=== PATIENT | male | born 1975 | race Caucasian/White ===

== ENCOUNTER 2019-02-20 06:51 | Emergency (ER) | payer OTHER ==
[2019-02-20] MEDS ORDERED: Morphine 4 MG/ML VIAL ONE (07:36)
[2019-02-20] MEDS ORDERED: Ondansetron PF 4 MG/2 ML Vial ONE (07:36)
[2019-02-20 08:01] LABS: ALT (SGPT) 26 U/L (8-55); AST (SGOT) 21 U/L (5-34); Albumin 3.5 g/dL (3.5-5.0); Alkaline Phosphatase 106 U/L (40-110); Anion Gap 15 mmol/L (10-20); BUN (Urea Nitrogen) 10 mg/dL (8.9-20.6); Bilirubin, Total 0.5 mg/dL (0.2-1.2); Calc. Creatinine Clearance 0 mL/min (70-130); Calcium 8.9 mg/dL (7.8-10.44); Carbon Dioxide 26 mmol/L (22-29); Chloride 95 mmol/L (98-107); Estimated GFR-MDRD Greater than 90; Globulin 3.2 g/dL (2.4-3.5); Glucose 272 mg/dL (70-105); Potassium 4.2 mmol/L (3.5-5.1); Protein, Total 6.7 g/dL (6.0-8.3); Sodium 132 mmol/L (136-145)
[2019-02-20 08:25] LABS: Hemoglobin 12.1 g/dL (14.0-18.0); Mean Corpuscular HGB CONC 34.5 g/dL (32.0-36.0); Mean Corpuscular Hemoglobin 29.7 pg (27.0-31.0); Mean Corpuscular Volume 85.9 fL (78.0-98.0); Mean Platelet Volume 7.5 fL (7.4-10.4); Platelet Count 217 thou/uL (130-400); RBC Distribution Width 10.9 % (11.5-14.5); Red Blood Cell (RBC) Count 4.09 mill/uL (4.70-6.10); White Blood Cell (WBC) Count 13.9 thou/uL (4.8-10.8)
[2019-02-20 08:29] LABS: Band 1 % (5-11); Lymphocytes 7 % (21-51); MDiff Complete? YES; Monocytes 1 % (0-10); Neutrophil 91 % (42-75); RBC Morphology Normal
[2019-02-20 09:55] LABS: Bacteria/HPF None Seen HPF (None Seen); Bilirubin Negative (Negative); Blood, Urine 1+ (Negative); Clarity Clear (Clear); Glucose, Urine (Dipstick) Greater than 1000 mg/dL (Negative); Leukocyte Negative Leu/uL (Negative); Nitrite Negative (Negative); Protein, Urine (Dipstick) 50 mg/dL (Neg-Trace); Squamous Epithelial None Seen HPF (0-3); WBC/HPF 0-3 HPF (0-3)
== END 2019-02-20 09:41 | disposition home or self-care (01) ==
LOC: ERS 06:51
DX: R11.2 Nausea with vomiting, unspecified (principal); R19.7 Diarrhea, unspecified; E10.9 Type 1 diabetes mellitus without complications; F17.220 Nicotine dependence, chewing tobacco, uncomplicated
CPT/HCPCS: 36416; 80053; 81003; 81015; 85025; 96361; 96374; 96375; J2270; J2405

== ENCOUNTER 2019-02-23 10:20 | Inpatient (IN) | payer OTHER ==
[2019-02-23 10:50] LABS: White Blood Cell (WBC) Count 13.5 thou/uL (4.8-10.8)
[2019-02-23] MEDS ORDERED: Ketorolac Tromethamine 30 MG/ML VIAL ONE (10:58)
[2019-02-23] MEDS ORDERED: Ondansetron PF 4 MG/2 ML Vial ONE ×2 (10:58→12:49)
[2019-02-23 11:07] LABS: Base Excess-Venous -1.4 mmol/L (-2.0 to 3.0); Bicarbonate (HCO3v) 22.4 mmol/L (22.0-28.0); CO2 Tension (PvCO2) 33.5 mmHg (40.0-50.0); Calcium, Ionized 1.09 mmol/L (See Comments:); Chloride 98 mmol/L (98-107); Hemoglobin - Calc 10.6 g/dL (14.0-18.0); Potassium 4.2 mmol/L (3.5-5.1); Sodium 131 mmol/L (138-145); T. Carbon Dioxide 23.4 mmol/L (22.0-28.0); vO2 Saturation-calc 81.6 % (60.0-85.0)
[2019-02-23 11:18] LABS: Hemoglobin 12.1 g/dL (14.0-18.0); Mean Corpuscular HGB CONC 32.6 g/dL (32.0-36.0); Mean Corpuscular Hemoglobin 28.1 pg (27.0-31.0); Mean Corpuscular Volume 86.2 fL (78.0-98.0); Mean Platelet Volume 7.1 fL (7.4-10.4); Platelet Count 374 thou/uL (130-400); RBC Distribution Width 10.9 % (11.5-14.5); Red Blood Cell (RBC) Count 4.31 mill/uL (4.70-6.10)
[2019-02-23 11:19] LABS: Band 1 % (5-11); Lymphocytes 3 % (21-51); MDiff Complete? YES; Monocytes 1 % (0-10); Neutrophil 95 % (42-75); Platelet Morphology Comment Appears Adequate; Polychromasia SLIGHT = 2-3 cells (100X) (0-2/hpf)
[2019-02-23 11:20] LABS: ALT (SGPT) 25 U/L (8-55); AST (SGOT) 23 U/L (5-34); Albumin 3.7 g/dL (3.5-5.0); Alkaline Phosphatase 125 U/L (40-110); Anion Gap 23 mmol/L (10-20); BUN (Urea Nitrogen) 12 mg/dL (8.9-20.6); Bilirubin, Total 0.6 mg/dL (0.2-1.2); Calc. Creatinine Clearance 0 mL/min (70-130); Calcium 9.3 mg/dL (7.8-10.44); Carbon Dioxide 22 mmol/L (22-29); Chloride 93 mmol/L (98-107); Estimated GFR-MDRD Greater than 90; Globulin 3.9 g/dL (2.4-3.5); Glucose 335 mg/dL (70-105); Lipase 4 U/L (8-78); Potassium 4.5 mmol/L (3.5-5.1); Protein, Total 7.6 g/dL (6.0-8.3); Sodium 133 mmol/L (136-145)
--- NOTE | 2019-02-23 11:22 | RAD ---
PORTABLE CHEST 1 VIEW: DATE: 02/23/2019. TIME: 10:23 AM. HISTORY: Cough. FINDINGS/IMPRESSION: Comparison is made with the exam of 04/15/2014. The heart size is normal. There is mild infiltrate in the left suprahilar region which may represent an early/developing pneumonia. A smaller process is seen in the right perihilar region. No pneumot horaces or pleural effusions are seen. POS: TPC
[2019-02-23] MEDS ORDERED: Aspirin Chewable 81 MG TAB ONE (12:36)
[2019-02-23 13:13] LABS: INR-International Normal Ratio 1.2; PTT 34.6 SEC (22.9-36.1); Prothrombin Time 15.3 SEC (12.0-14.7)
[2019-02-23] MEDS ORDERED: cefTRIAXone\\ROCEPHIN 2 GM VIAL ONE (13:20)
[2019-02-23] MEDS ORDERED: Sodium Chloride 0.9% 100 ML ONE (13:20)
--- NOTE | 2019-02-23 13:50 | RAD ---
Exam: Chest one view HISTORY: Myocardial infarction Comparison: None FINDINGS: Cardiac silhouette: Normal Aorta: Unremarkable Pulmonary vessels: Normal Costophrenic angles: Clear LUNGS: Patchy interstitial and alveolar infiltrates likely representing edema. Pneumothorax: None Osseous abnormalities: None IMPRESSION: Patchy interstitial and alveolar infiltrates, likely resulting edema.
[2019-02-23] MEDS ORDERED: Morphine 4 MG/ML VIAL ONE (13:51)
[2019-02-23] MEDS ORDERED: Azithromycin 500 MG VIAL ONE (13:51)
--- NOTE | 2019-02-23 14:54 | PDOC.HHP ---
Hospitalist HPI - History of Present Illness high blood sugar History of Present Illness: 43yo M w/ MHx of Type I diabetes (previously had insulin pump) presents to the ED because he is worried about his high blood sugar. A week ago, fell ill, febrile 102F, nausea, vomiting, and diarrhea. Blood sugar range usually 150-250 with 60-80u of long acting insulin qhs and changing dosage of short acting dependent on patient's meal, but during the past week has been difficult to control and in the 400s, so came to the ED ED Course: In the ED, EKG showed RBBB with ANEUDY. Per ED resident, cardiology evaluated a patient and determined that it wasn't ACS and that RBBB is not new, so ACS treatment was stopped. Additionally, patient was found to be in DKA so DKA protocol was initiated. Hospitalist ROS - Review of Systems Constitutional: reports: fever, chills, sweats Eyes: denies: pain, vision change, conjunctivae inflammation, eyelid inflammation, redness, other ENT: denies: ear pain, ear discharge, nose pain, nose discharge, nose congestion , mouth pain, mouth swelling, throat pain, throat swelling, other Respiratory: reports: pleuritic pain. denies: cough, dry, shortness of breath, hemoptysis, SOB with excertion, sputum, wheezing, other Cardiovascular: reports: light headedness. denies: chest pain, palpitations, orthopnea, paroxysmal noc. dyspnea, edema, other Gastrointestinal: reports: nausea, vomiting. denies: abdominal pain, diarrhea, constipation, melena, hematochezia, other Genitourinary: reports: frequency. denies: dysuria, incontinence, hematuria, retention, other Musculoskeletal: denies: neck pain, shoulder pain, arm pain, back pain, hand pain, leg pain, foot pain, other Skin: denies: rash, lesions, yahaira, bruising, other Neurological: reports: weakness. denies: numbness, incoordination, change in speech, confusion, seizures, other All other systems reviewed; all pertinent +/- noted in HPI/Subj Hospitalist History - Past Medical History Source: patient, family Cardiac: reports: no pertinent history. denies: CAD, HTN, Syncope Pulmonary: reports: no pertinent history MANAGER MEDICAL AFFAIRS: reports: no pertinent history Gastrointestinal: reports: no pertinent history Heme/Onc: reports: no pertinent history Hepatobiliary: reports: no pertinent history Psych: reports: no pertinent history Musculoskeletal: reports: no pertinent history Rheumatologic: reports: no pertinent history Infectious Disease: reports: no pertinent history ENT: reports: no pertinent history Renal/: reports: no pertinent history Endocrine: reports: Diabetes Dermatology: reports: no pertinent history - Past Surgical History Past Surgical History: reports: Other (right knee hardware placement; neck and lumbar spine disc compression) - Family History Family History: reports: hypertension - Social History Smoking Status: Former smoker Tobacco Type: cigarettes Alcohol: reports: None Drugs: reports: none Living Situation: With Family Domestic Violence: Negative Activity level: independent ambulation - Exam General Appearance: NAD, awake alert Eye: PERRL ENT: normocephalic atraumatic, no oropharyngeal lesions, dry oral mucosa Neck: supple, symmetric, no JVD, no thyromegaly, no lymphadenopathy, no carotid bruit Heart: no murmur, no gallops, no rubs, normal peripheral pulses Heart - other findings: tachycardia Respiratory: CTAB, no wheezes, no rales, no ronchi, normal chest expansion, no tachypnea, normal percussion Gastrointestinal: soft, non-tender, non-distended, normal bowel sounds, no palpable masses, no hepatomegaly, no splenomegaly, no bruit Extremities: no cyanosis, no clubbing, no edema Skin: normal turgor, no lesions, no rashes Neurological: cranial nerve grossly intact, normal sensation to touch, no weakness, no focal deficits, no new deficit Musculoskeletal: normal tone, normal strength, no muscle wasting Hospitalist Results - Labs Result Diagrams: 02/23/19 10:35 02/23/19 10:35 Lab results: WBC 13.5 thou/uL (4.8-10.8) H 02/23/19 10:35 Hgb 12.1 g/dL (14.0-18.0) L 02/23/19 10:35 Hct 37.1 % (42.0-52.0) L 02/23/19 10:35 MCV 86.2 fL (78.0-98.0) 02/23/19 10:35 Plt Count 374 thou/uL (130-400) 02/23/19 10:35 Band Neuts % (Manual) 1 % (5-11) L 02/23/19 10:35 VBG pCO2 33.5 mmHg (40.0-50.0) L 02/23/19 11:07 VBG pO2 44.0 mmHg (35.0-45.0) 02/23/19 11:07 Sodium 133 mmol/L (136-145) L 02/23/19 10:35 Potassium 4.5 mmol/L (3.5-5.1) 02/23/19 10:35 Chloride 93 mmol/L (98-107) L 02/23/19 10:35 Carbon Dioxide 22 mmol/L (22-29) 02/23/19 10:35 BUN 12 mg/dL (8.9-20.6) 02/23/19 10:35 Creatinine 0.84 mg/dL (0.7-1.3) 02/23/19 10:35 Glucose 335 mg/dL (70-105) H 02/23/19 10:35 Lactic Acid 1.7 mmol/L (0.5-2.2) 02/23/19 10:35 Calcium 9.3 mg/dL (7.8-10.44) 02/23/19 10:35 Total Bilirubin 0.6 mg/dL (0.2-1.2) 02/23/19 10:35 AST 23 U/L (5-34) 02/23/19 10:35 ALT 25 U/L (8-55) 02/23/19 10:35 Alkaline Phosphatase 125 U/L (40-110) H 02/23/19 10:35 Troponin I 0.015 ng/mL (< 0.028) 02/23/19 10:35 Serum Total Protein 7.6 g/dL (6.0-8.3) 02/23/19 10:35 Albumin 3.7 g/dL (3.5-5.0) 02/23/19 10:35 Lipase 4 U/L (8-78) L 02/23/19 10:35 - EKG Interpretation EKG: RBBB with discordant ST changes - Radiology Interpretation Chest x-ray Status: image reviewed by in Hospitalist H&P A/P - Problem (1) DKA (diabetic ketoacidosis) Code(s): E13.10 - [facility] DIABETES MELLITUS WITH KETOACIDOSIS WITHOUT COMA Status : Acute Qualifiers: Diabetes mellitus type: type 1 Diabetes mellitus complication detail: without coma Qualified Code(s): E10.10 - Type 1 diabetes mellitus with ketoacidosis without coma Assessment and Plan: -due to recent viral gastroenteritis -started on insulin drip with DKA protocol; patient improving -admitted to IMCU -will transition home long acting (60u) and sliding scale once BG ~ 200 -will require outpatient mold shifter follow up (2) Right bundle branch block (RBBB) on electrocardiogram (ECG) Code(s): I45.10 - UNSPECIFIED RIGHT BUNDLE-BRANCH BLOCK Status: Acute - Plan Plan: -RBBB with discordant ST changes, inconsistent with ACS -per ED resident; cardiology evaluated as well and compared to previous EKG; deemed patient does not have STEMI -first troponin negative -likely benign RBBB; will follow up with PCP I spent 30 minutes for evaluating and treating the patient
[2019-02-23 15:00] LABS: Troponin I Less than 0.010 ng/mL (< 0.028)
[2019-02-23] MEDS ORDERED: Insulin Regular 300 UNITS/3 ML VIAL IVP SCH (15:00)
[2019-02-23] MEDS ORDERED: HUMULIN R 100 UNITS in Sodium Chloride 0.9% 100 ML IVPB SCH ×2 (15:00→16:40)
[2019-02-23] MEDS ORDERED: Heparin 10,000 UNITS/ 10 ML VIAL SLOW IVP SCH (15:00)
[2019-02-23] MEDS ORDERED: Heparin 25,000 units/D5W 500 ML IV SCH (15:00)
[2019-02-23 15:04] LABS: Bacteria/HPF None Seen HPF (None Seen); Bilirubin Negative (Negative); Blood, Urine 1+ (Negative); Clarity Clear (Clear); Glucose, Urine (Dipstick) Greater than 1000 mg/dL (Negative); Leukocyte Negative Leu/uL (Negative); Nitrite Negative (Negative); Protein, Urine (Dipstick) 30 mg/dL (Neg-Trace); RBC/HPF 0-3 HPF (0-3); Squamous Epithelial None Seen HPF (0-3); Urobilinogen Normal mg/dL (Less than 2); WBC/HPF 0-3 HPF (0-3)
[2019-02-23] MEDS ORDERED: Insulin Regular 300 UNITS/3 ML VIAL ONE (15:10)
[2019-02-23] MEDS ORDERED: NS 0.9% w/ 20 MEQ KCL 1,000 ML/1,000 ML BAG IV PRN (15:40)
[2019-02-23] MEDS ORDERED: CCU Electrolyte Replacement 1 EACH IVPB ONE (16:40)
[2019-02-23] MEDS ORDERED: Acetaminophen 325 MG TAB ONE (16:52)
[2019-02-23] MEDS: Acetaminophen 325 MG TAB PO PRN ×2 (16:53→23:12)
[2019-02-23] MEDS ORDERED: Heparin 10,000 UNITS/ 10 ML VIAL ONE (16:59)
[2019-02-23] MEDS ORDERED: PHOS-NAK 1 PKT PACK PO PRN ×2 (17:06)
[2019-02-23] MEDS ORDERED: Potassium Phosphate 9 MMOL in Sodium Chloride 0.9% 100 ML IVPB PRN (17:06)
[2019-02-23] MEDS ORDERED: Potassium Chloride 20 MEQ TAB PO PRN (17:06)
[2019-02-23] MEDS ORDERED: Magnesium 2 GM/50 ML 2 GM in Premix Bag 1 BAG IVPB PRN (17:06)
[2019-02-23] MEDS ORDERED: Potassium Phosphate 12 MMOL in Sodium Chloride 0.9% 250 ML 250 ML IV PRN (17:06)
[2019-02-23] MEDS ORDERED: Potassium Phosphate 15 MMOL in Sodium Chloride 0.9% 250 ML 250 ML IV PRN (17:06)
[2019-02-23] MEDS ORDERED: Potassium Chloride 40 MEQ in Premix Bag 1 BAG IVPB PRN (17:06)
[2019-02-23] MEDS ORDERED: Potassium Chloride 40 MEQ in Sodium Chloride 0.9% 250 ML 250 ML IVPB PRN (17:06)
[2019-02-23] MEDS ORDERED: CCU ELECTROLYTE REPLACEMENT PROTOCOL FS PRN (17:06)
[2019-02-23] MEDS ORDERED: Magnesium Oxide 400 MG TAB PO PRN ×2 (17:06)
[2019-02-23 17:26] LABS: Anion Gap 15 mmol/L (10-20); BUN (Urea Nitrogen) 16 mg/dL (8.9-20.6); Calc. Creatinine Clearance 0 mL/min (70-130); Calcium 8.2 mg/dL (7.8-10.44); Carbon Dioxide 25 mmol/L (22-29); Chloride 100 mmol/L (98-107); Estimated GFR-MDRD Greater than 90; Glucose 190 mg/dL (70-105); Potassium 3.9 mmol/L (3.5-5.1); Sodium 136 mmol/L (136-145)
[2019-02-23] MEDS: Ondansetron PF 4 MG/2 ML Vial IVP PRN (21:09)
[2019-02-23 21:25] LABS: Anion Gap 17 mmol/L (10-20); BUN (Urea Nitrogen) 15 mg/dL (8.9-20.6); Calc. Creatinine Clearance 0 mL/min (70-130); Calcium 8.2 mg/dL (7.8-10.44); Carbon Dioxide 21 mmol/L (22-29); Chloride 102 mmol/L (98-107); Estimated GFR-MDRD Greater than 90; Glucose 137 mg/dL (70-105); Potassium 4.2 mmol/L (3.5-5.1); Sodium 136 mmol/L (136-145)
[2019-02-23 23:07] VITALS: BMI 21.6
[2019-02-23] MEDS ORDERED: traZODone HCl 50 MG TAB PO SCH (23:59)
[2019-02-24 01:27] LABS: Anion Gap 15 mmol/L (10-20); BUN (Urea Nitrogen) 12 mg/dL (8.9-20.6); Calc. Creatinine Clearance 154 mL/min (70-130); Calcium 7.7 mg/dL (7.8-10.44); Carbon Dioxide 20 mmol/L (22-29); Chloride 99 mmol/L (98-107); Estimated GFR-MDRD Greater than 90; Glucose 237 mg/dL (70-105); Potassium 4.5 mmol/L (3.5-5.1); Sodium 129 mmol/L (136-145)
[2019-02-24] MEDS ORDERED: HumaLOG 300 UNITS/3 ML VIAL SC PRN (01:59)
[2019-02-24] MEDS ORDERED: Dextrose 5% in Water 1,000 ML IV PRN (01:59)
[2019-02-24] MEDS ORDERED: Dextrose 50% Abboject 50 ML SYRINGE SLOW IVP PRN (01:59)
[2019-02-24] MEDS: Sodium Chloride 0.9% 1,000 ML IV SCH ×3 (03:45→03:47)
[2019-02-24 05:03] LABS: Anion Gap 16 mmol/L (10-20); BUN (Urea Nitrogen) 11 mg/dL (8.9-20.6); Calc. Creatinine Clearance 144 mL/min (70-130); Calcium 7.9 mg/dL (7.8-10.44); Carbon Dioxide 20 mmol/L (22-29); Chloride 100 mmol/L (98-107); Estimated GFR-MDRD Greater than 90; Glucose 213 mg/dL (70-105); Potassium 4.5 mmol/L (3.5-5.1); Sodium 131 mmol/L (136-145)
[2019-02-24] MEDS ORDERED: Ibuprofen 600 MG TAB PO SCH ×2 (07:00→23:30)
[2019-02-24] MEDS: Ondansetron PF 4 MG/2 ML Vial IVP PRN ×3 (07:50→18:51)
[2019-02-24] MEDS: Morphine 2 MG/ML SYRINGE SLOW IVP PRN ×4 (08:24→21:22)
[2019-02-24] MEDS ORDERED: traZODone HCl 50 MG TAB PO SCH ×2 (09:00→21:00)
[2019-02-24] MEDS: Insulin Regular 300 UNITS/3 ML VIAL SC PRN ×4 (09:09→21:25)
--- NOTE | 2019-02-24 10:45 | PDOC.HOSPP ---
- Subjective Encounter Date: 02/24/19 Encounter Time: 09:00 Subjective: Overnight, spiked fever 102F and had severe neck pain. This morning, anxious and complains of vomiting and sputum production. Was started on antibiotics for community acquired pneumonia considering symptoms and xray findings - Objective Vital Signs & Weight: Vital Signs (12 hours) Temp 02/24/19 07:41 98.9 F 02/24/19 04:01 99.3 F 02/23/19 23:29 102.0 F H Weight Weight 155 lb 3.2 oz Most Recent Monitor Data Heart Rate from ECG 108 NIBP 152/87 NIBP BP-Mean 108 Respiration from ECG 18 SpO2 97 I&O: 02/23/19 02/24/19 02/25/19 06:59 06:59 06:59 Intake Total 480 Output Total 500 Balance -20 Result Diagrams: 02/23/19 10:35 02/24/19 04:32 Additional Labs: Accuchecks 02/24/19 02/24/19 02/24/19 08:05 04:12 02:06 POC Glucose 274 H 233 H 246 H 02/24/19 02/23/19 02/23/19 00:07 21:05 19:36 POC Glucose 243 H 159 H 88 02/23/19 02/23/19 02/23/19 18:56 18:33 17:33 POC Glucose 108 110 141 H 02/23/19 02/23/19 02/23/19 16:56 16:05 15:35 POC Glucose 185 H 254 H 270 H 02/23/19 14:59 POC Glucose 302 H Hospitalist ROS - Review of Systems Constitutional: reports: chills, sweats Eyes: denies: pain, vision change, conjunctivae inflammation, eyelid inflammation, redness, other ENT: denies: ear pain, ear discharge, nose pain, nose discharge, nose congestion , mouth pain, mouth swelling, throat pain, throat swelling, other Respiratory: reports: cough, pleuritic pain, sputum. denies: dry, shortness of breath, hemoptysis, SOB with excertion, wheezing, other Cardiovascular: denies: chest pain, palpitations, orthopnea, paroxysmal noc. dyspnea, edema, light headedness, other Gastrointestinal: reports: nausea, vomiting. denies: abdominal pain, diarrhea, constipation, melena, hematochezia, other Genitourinary: denies: dysuria, frequency, incontinence, hematuria, retention, other Musculoskeletal: reports: neck pain. denies: shoulder pain, arm pain, back pain , hand pain, leg pain, foot pain, other - Medication Medications: Active Medications Generic Name Dose Route Start Last Admin Trade Name Freq PRN Reason Stop Dose Admin Acetaminophen 650 mg 02/23/19 15:54 02/23/19 23:12 Tylenol PO 650 mg Q4H PRN Administration Pain Insulin Human Regular 0 units 02/24/19 08:46 02/24/19 09:09 Humulin R SC 6 unit .MODERATE SLIDING SC PRN Administration Moderate Correctional Scale Morphine Sulfate 2 mg 02/24/19 08:03 02/24/19 08:24 Morphine SLOW IVP 2 mg Q4H PRN Administration Pain Ondansetron HCl 4 mg 02/23/19 20:59 02/24/19 07:50 Zofran IVP 4 mg Q6H PRN Administration Nausea/Vomiting - Exam General Appearance: awake alert General - other findings: anxious ENT: normocephalic atraumatic, no oropharyngeal lesions, moist mucosa Neck: supple, symmetric, no JVD, no thyromegaly, no lymphadenopathy, no carotid bruit Heart: no murmur, no gallops, normal peripheral pulses Heart - other findings: regular rhythm, tachycardic Respiratory: CTAB, no wheezes, no rales, no ronchi, normal chest expansion, no tachypnea, normal percussion Gastrointestinal: soft, non-tender, non-distended, normal bowel sounds, no palpable masses, no hepatomegaly, no splenomegaly, no bruit Psychiatric - other findings: anxious and irritated Hosp A/P (1) DKA (diabetic ketoacidosis) Code(s): E13.10 - OTH DIABETES MELLITUS WITH KETOACIDOSIS WITHOUT COMA Status : Acute Qualifiers: Diabetes mellitus type: type 1 Diabetes mellitus complication detail: without coma Qualified Code(s): E10.10 - Type 1 diabetes mellitus with ketoacidosis without coma Plan: Ketoacidosis resolved currently on lantus and moderate sliding scale; blood glucose better controlled continue subq regimen, diabetic diet (2) Community acquired pneumonia Code(s): J18.9 - PNEUMONIA, UNSPECIFIED ORGANISM Status: Acute Plan: febrile overnight, sputum production CXR c/w developing pneumonia UA negative blood Cx pending Started ceftriaxone and azithromycin (3) Right bundle branch block (RBBB) on electrocardiogram (ECG) Code(s): I45.10 - UNSPECIFIED RIGHT BUNDLE-BRANCH BLOCK Status: Acute Plan: RBBB old per ER team; cardiology evaluated patient in ED and deemed no STEMI EKG showing RBBB with ST discordance to the average last portion of QRS, consistent with regular EKG findings with RBBB trop on presentation negative -cardiology consulted to assess benign nature of RBBB (4) Anxiety, mild Code(s): F41.9 - ANXIETY DISORDER, UNSPECIFIED Status: Acute Plan: patient more anxious today; educated patient regarding plan -continue trazodone
[2019-02-24] MEDS: cefTRIAXone\\ROCEPHIN 1 GM in Sodium Chloride 0.9% 100 ML IVPB SCH (12:35)
[2019-02-24] MEDS ORDERED: cefTRIAXone\\ROCEPHIN 1 GM VIAL ONE (13:24)
[2019-02-24] MEDS: Azithromycin 500 MG in Sodium Chloride 0.9% 250 ML 250 ML IVPB SCH (14:12)
[2019-02-24 17:57] LABS: Anion Gap 15 mmol/L (10-20); BUN (Urea Nitrogen) 9 mg/dL (8.9-20.6); Calc. Creatinine Clearance 140 mL/min (70-130); Calcium 8.2 mg/dL (7.8-10.44); Carbon Dioxide 22 mmol/L (22-29); Chloride 99 mmol/L (98-107); Estimated GFR-MDRD Greater than 90; Glucose 226 mg/dL (70-105); Potassium 3.7 mmol/L (3.5-5.1); Sodium 132 mmol/L (136-145)
[2019-02-24] MEDS ORDERED: Potassium Chloride 20 MEQ TAB PO SCH (19:30)
[2019-02-24] MEDS: Acetaminophen 325 MG TAB PO PRN (21:46)
[2019-02-24] MEDS ORDERED: Melatonin 3 MG TAB PO PRN (22:34)
[2019-02-24] MEDS: diphenhydrAMINE 25 MG CAP PO PRN (22:56)
--- NOTE | 2019-02-24 23:27 | RAD ---
Chest AP view INDICATION: Worsening O2 sats COMPARISON: Prior exam dated February 23, 2019 FINDINGS: Lungs:There is worsening airspace disease within both upper lobes as well as within the left lower lo be suspicious for worsening pneumonia Cardiac silhouette:The cardiomediastinal silhouette appears within normal limits. Pulmonary vasculature:Normal Pleural spaces:There are tiny bilateral pleural effusions Upper abdomen:No abnormality seen. Osseous structures: Thoracolumbar scoliosis and ACDF are unchanged Additional findings:None. IMPRESSION: Worsening bilateral airspace disease suspicious for worsening pneumonia. Tiny bilateral p leural effusions are new.
[2019-02-24] MEDS ORDERED: Sodium Chloride 0.9% 1,000 ML IV SCH (23:30)
[2019-02-24 23:40] LABS: Band 1 % (5-11); Eosinophils 2 % (0-10); Hemoglobin 9.8 g/dL (14.0-18.0); Hypochromia SLIGHT = 6-15 cells (100X) (0-5/hpf); Lymphocytes 1 % (21-51); MDiff Complete? YES; Mean Corpuscular HGB CONC 32.8 g/dL (32.0-36.0); Mean Corpuscular Hemoglobin 28.3 pg (27.0-31.0); Mean Corpuscular Volume 86.3 fL (78.0-98.0); Monocytes 1 % (0-10); Neutrophil 95 % (42-75); Platelet Count 354 thou/uL (130-400); Platelet Morphology Comment Appears Adequate; Red Blood Cell (RBC) Count 3.45 mill/uL (4.70-6.10); White Blood Cell (WBC) Count 13.1 thou/uL (4.8-10.8)
[2019-02-24 23:44] LABS: Anion Gap 14 mmol/L (10-20); BUN (Urea Nitrogen) 7 mg/dL (8.9-20.6); Calc. Creatinine Clearance 149 mL/min (70-130); Calcium 7.8 mg/dL (7.8-10.44); Carbon Dioxide 21 mmol/L (22-29); Chloride 98 mmol/L (98-107); Estimated GFR-MDRD Greater than 90; Glucose 235 mg/dL (70-105); Potassium 4.3 mmol/L (3.5-5.1); Sodium 129 mmol/L (136-145)
[2019-02-25] MEDS: Morphine 2 MG/ML SYRINGE SLOW IVP PRN ×5 (03:27→21:33)
[2019-02-25] MEDS: Ondansetron PF 4 MG/2 ML Vial IVP PRN ×2 (03:27→16:37)
[2019-02-25] MEDS ORDERED: clonazePAM 0.5 MG TAB PO SCH (05:45)
[2019-02-25] MEDS: Insulin Regular 300 UNITS/3 ML VIAL SC PRN ×2 (06:41→11:27)
[2019-02-25] MEDS: Insulin Regular 300 UNITS/3 ML VIAL SC SCH ×3 (08:52→17:55)
[2019-02-25] MEDS: Sodium Chloride 0.9% 1,000 ML IV SCH ×2 (08:52→17:56)
[2019-02-25 08:57] LABS: Hemoglobin 10.3 g/dL (14.0-18.0); Mean Corpuscular HGB CONC 32.9 g/dL (32.0-36.0); Mean Corpuscular Hemoglobin 28.6 pg (27.0-31.0); Mean Corpuscular Volume 87.1 fL (78.0-98.0); Platelet Count 410 thou/uL (130-400); RBC Distribution Width 11.1 % (11.5-14.5); Red Blood Cell (RBC) Count 3.59 mill/uL (4.70-6.10); White Blood Cell (WBC) Count 11.6 thou/uL (4.8-10.8)
[2019-02-25 09:16] LABS: Anion Gap 16 mmol/L (10-20); BUN (Urea Nitrogen) 9 mg/dL (8.9-20.6); Calc. Creatinine Clearance 142 mL/min (70-130); Calcium 8.2 mg/dL (7.8-10.44); Carbon Dioxide 22 mmol/L (22-29); Chloride 99 mmol/L (98-107); Estimated GFR-MDRD Greater than 90; Glucose 350 mg/dL (70-105); Potassium 4.5 mmol/L (3.5-5.1); Sodium 132 mmol/L (136-145)
[2019-02-25 09:42] LABS: Band 2 % (5-11); Eosinophils 6 % (0-10); Hypochromia SLIGHT = 6-15 cells (100X) (0-5/hpf); Lymphocytes 4 % (21-51); MDiff Complete? YES; Monocytes 2 % (0-10); Neutrophil 86 % (42-75); Platelet Morphology Comment Appears Increased
--- NOTE | 2019-02-25 12:04 | PDOC.HOSPP ---
- Subjective Encounter Date: 02/25/19 Encounter Time: 08:00 Subjective: Overnight, had hypoxemic episode and desatted to high 80s so was started on NC, and was also anxious so given clonazepam once. This morning, feels overall better and more relaxed. - Objective Vital Signs & Weight: Vital Signs (12 hours) Temp Pulse Resp BP Pulse Ox 02/25/19 11:01 99.6 F 99 18 131/83 91 L 02/25/19 08:16 98 F 96 18 143/87 H 97 02/25/19 04:00 97.8 F 93 16 128/81 96 02/25/19 00:12 96 16 95 02/25/19 00:00 98.8 F 97 16 117/75 93 L Weight Admit Weight 155 lb 3.2 oz Weight 155 lb 3.2 oz Most Recent Monitor Data Heart Rate from ECG 103 NIBP 124/81 NIBP BP-Mean 95 Respiration from ECG 14 SpO2 97 I&O: 02/24/19 02/25/19 02/26/19 06:59 06:59 06:59 Intake Total 480 1190 Output Total 500 Balance -20 1190 Result Diagrams: 02/25/19 08:35 02/25/19 08:35 Additional Labs: Accuchecks 02/25/19 02/25/19 02/24/19 11:07 06:25 21:07 POC Glucose 285 H 310 H 268 H 02/24/19 15:23 POC Glucose 269 H Radiology Reviewed by me: Yes (worsening diffuse opacities, mostly right field) Hospitalist ROS - Review of Systems Constitutional: reports: chills, sweats Eyes: reports: pain Respiratory: denies: cough, dry, shortness of breath, hemoptysis, SOB with excertion, pleuritic pain, sputum, wheezing, other Cardiovascular: denies: chest pain, palpitations, orthopnea, paroxysmal noc. dyspnea, edema, light headedness, other Gastrointestinal: reports: nausea, vomiting. denies: abdominal pain, diarrhea, constipation, melena, hematochezia, other Genitourinary: denies: dysuria, frequency, incontinence, hematuria, retention, other - Medication Medications: Active Medications Generic Name Dose Route Start Last Admin Trade Name Freq PRN Reason Stop Dose Admin Acetaminophen 650 mg 02/23/19 15:54 02/24/19 21:46 Tylenol PO 650 mg Q4H PRN Administration Pain Diphenhydramine HCl 25 mg 02/24/19 22:29 02/24/19 22:56 Benadryl PO 25 mg Q6H PRN Administration Itching & Insomnia Ceftriaxone Sodium 1 gm/ 100 mls @ 200 mls/hr 02/24/19 13:00 02/24/19 12:35 Sodium Chloride IVPB 100 mls 1300 PAYTON Administration Azithromycin 500 mg/ Sodium 250 mls @ 250 mls/hr 02/24/19 14:00 02/24/19 14: 12 Chloride IVPB 250 mls 1400 PAYTON Administration Sodium Chloride 1,000 mls @ 100 mls/hr 02/25/19 07:30 02/25/19 08:52 Normal Saline 0.9% IV 1,000 mls .Q10H PAYTON Administration Insulin Human Regular 0 units 02/24/19 08:46 02/25/19 11:27 Humulin R SC 6 unit .MODERATE SLIDING SC PRN Administration Moderate Correctional Scale Insulin Human Regular 5 units 02/25/19 07:30 02/25/19 11:27 Humulin R SC 5 unit AC PAYTON Administration Melatonin 3 mg 02/24/19 22:34 02/24/19 22:56 Melatonin PO 3 mg HS PRN Administration Insomnia Morphine Sulfate 2 mg 02/24/19 08:03 02/25/19 11:24 Morphine SLOW IVP 2 mg Q4H PRN Administration Pain Ondansetron HCl 4 mg 02/23/19 20:59 02/25/19 03:27 Zofran IVP 4 mg Q6H PRN Administration Nausea/Vomiting - Exam General Appearance: NAD, awake alert Heart: RRR, no murmur, no gallops, no rubs, normal peripheral pulses Respiratory: rales Respiratory - other findings: mostly right lower field Gastrointestinal: soft, non-tender, non-distended, normal bowel sounds, no palpable masses, no hepatomegaly, no splenomegaly, no bruit Neurological: cranial nerve grossly intact, normal sensation to touch, no weakness, no focal deficits, no new deficit Psychiatric: normal affect, normal behavior, A&O x 3 Hosp A/P (1) DKA (diabetic ketoacidosis) Code(s): E13.10 - OTH DIABETES MELLITUS WITH KETOACIDOSIS WITHOUT COMA Status : Acute Qualifiers: Diabetes mellitus type: type 1 Diabetes mellitus complication detail: without coma Qualified Code(s): E10.10 - Type 1 diabetes mellitus with ketoacidosis without coma Plan: blood glucose better controlled started scheduled long and short acting based on correction scale (2) Community acquired pneumonia Code(s): J18.9 - PNEUMONIA, UNSPECIFIED ORGANISM Status: Acute Plan: chest x-ray worse started ABx yesterday -respiratory culture -continue ABx -if becomes unstable or hypoxemic, escalate ABx to vancomycin and cefepime (3) Right bundle branch block (RBBB) on electrocardiogram (ECG) Code(s): I45.10 - UNSPECIFIED RIGHT BUNDLE-BRANCH BLOCK Status: Acute Plan: Patient educated regarding the finding; requested to see cigarette machine filler as outpatient (4) Anxiety, mild Code(s): F41.9 - ANXIETY DISORDER, UNSPECIFIED Status: Acute Plan: continue trazodone clonazepam 0.25mg PO once PRN anxiety
[2019-02-25] MEDS: cefTRIAXone\\ROCEPHIN 1 GM in Sodium Chloride 0.9% 100 ML IVPB SCH (13:35)
--- NOTE | 2019-02-25 16:08 | PDOC.BPN ---
- Brief Progress Note Paged by nurse stating patient tachycardic, 103F, tachypnic. Order another blood culture; In context of worsening CXR, stopped azithromycin and ceftriaxone and started vancomycin and cefepime.
[2019-02-25] MEDS ORDERED: Oseltamivir 75 MG CAP PO SCH (17:12)
[2019-02-25] MEDS: Azithromycin 500 MG in Sodium Chloride 0.9% 250 ML 250 ML IVPB SCH (17:23)
[2019-02-25 17:32] LABS: #Basophils 0.3 thou/uL (0.0-0.2); #Eosinphils 0.5 thou/uL (0.0-0.7); #Lymphocytes 0.3 thou/uL (1.20-3.40); #Monocytes 0.1 thou/uL (0.11-0.59); #Neutrophils 12.6 thou/uL (1.40-6.50); %Basophils 1.9 % (0.0-1.0); %Eosinophils 3.8 % (0.0-10.0); %Lymphocytes 2.2 % (21.0-51.0); %Monocytes 0.9 % (0.0-10.0); %Neutrophils 91.2 % (42.0-75.0); Hemoglobin 10.5 g/dL (14.0-18.0); Mean Corpuscular HGB CONC 32.8 g/dL (32.0-36.0); Mean Corpuscular Hemoglobin 28.3 pg (27.0-31.0); Mean Corpuscular Volume 86.2 fL (78.0-98.0); Mean Platelet Volume 6.5 fL (7.4-10.4); Platelet Count 442 thou/uL (130-400); Red Blood Cell (RBC) Count 3.72 mill/uL (4.70-6.10); White Blood Cell (WBC) Count 13.8 thou/uL (4.8-10.8)
[2019-02-25] MEDS: Cefepime 2 GM in Sodium Chloride 0.9% 100 ML IVPB SCH (17:52)
[2019-02-25 17:53] LABS: Anion Gap 15 mmol/L (10-20); BUN (Urea Nitrogen) 8 mg/dL (8.9-20.6); Calc. Creatinine Clearance 149 mL/min (70-130); Calcium 8.1 mg/dL (7.8-10.44); Carbon Dioxide 22 mmol/L (22-29); Chloride 97 mmol/L (98-107); Estimated GFR-MDRD Greater than 90; Glucose 186 mg/dL (70-105); Potassium 4.1 mmol/L (3.5-5.1); Sodium 130 mmol/L (136-145)
[2019-02-25 19:59] LABS: Bacteria/HPF None Seen HPF (None Seen); Bilirubin Negative (Negative); Blood, Urine 1+ (Negative); Clarity Clear (Clear); Glucose, Urine (Dipstick) 200 mg/dL (Negative); Leukocyte Negative Leu/uL (Negative); Mucous/LPF Rare LPF (<2+); Nitrite Negative (Negative); Protein, Urine (Dipstick) 20 mg/dL (Neg-Trace); Squamous Epithelial 0-3 HPF (0-3); Urobilinogen Normal mg/dL (Less than 2); WBC/HPF 0-3 HPF (0-3)
[2019-02-25 20:00] LABS: Urine Culture Reflex No No
[2019-02-25] MEDS ORDERED: Ketorolac Tromethamine 30 MG/ML VIAL IVP SCH (20:00)
[2019-02-25] MEDS ORDERED: Insulin Glargine 15 UNITS in Pre-Filled Syringe 1 EACH SC SCH (21:00)
[2019-02-25] MEDS: Vancomycin HCl 1.25 GM in Sodium Chloride 0.9% 250 ML 250 ML IVPB SCH (21:15)
[2019-02-25] MEDS: Acetaminophen 325 MG TAB PO PRN (21:32)
[2019-02-25] MEDS ORDERED: HYDROcodone/Acetaminophen 5/325 mg Tablet PO PRN ×2 (22:41)
[2019-02-26] MEDS: Ondansetron PF 4 MG/2 ML Vial IVP PRN ×4 (00:58→21:38)
[2019-02-26] MEDS: Cefepime 2 GM in Sodium Chloride 0.9% 100 ML IVPB SCH ×3 (01:01→16:31)
[2019-02-26] MEDS: Morphine 2 MG/ML SYRINGE SLOW IVP PRN ×3 (01:35→16:28)
[2019-02-26] MEDS ORDERED: Promethazine HCl 12.5 MG in Sodium Chloride 0.9% 50 ML IVPB PRN (04:27)
[2019-02-26] MEDS: Vancomycin HCl 1.25 GM in Sodium Chloride 0.9% 250 ML 250 ML IVPB SCH ×2 (05:46→14:14)
[2019-02-26] MEDS: Sodium Chloride 0.9% 1,000 ML IV SCH ×3 (05:51→21:40)
[2019-02-26] MEDS: Insulin Regular 300 UNITS/3 ML VIAL SC SCH ×3 (06:38→17:53)
[2019-02-26] MEDS: Insulin Regular 300 UNITS/3 ML VIAL SC PRN ×2 (07:53→12:15)
--- NOTE | 2019-02-26 08:19 | RAD ---
XR Chest 1 View History: Pneumonia Comparison: Radiograph 2 days prior Findings: Slight interval improvement in aeration lower lobes. Continued consolidation both upper lob es. Impression: Slight interval improvement of airspace aeration.
--- NOTE | 2019-02-26 12:23 | PDOC.HOSPP ---
- Subjective Encounter Date: 02/26/19 Encounter Time: 08:00 Subjective: Overnight, spiked a 103F while on ceftriaxone and azithromycin, so escalated antibiotics. This morning, fever resolved, feeling better overall but occasionally vomits high volume. Vomited while I was in the room. - Objective Vital Signs & Weight: Vital Signs (12 hours) Temp Pulse Resp BP Pulse Ox 02/26/19 11:34 98.7 F 90 16 126/82 94 L 02/26/19 07:55 97.3 F L 98 18 125/79 92 L 02/26/19 07:04 92 16 02/26/19 04:18 97.7 F 88 16 147/90 H 94 L Weight Admit Weight 155 lb 3.2 oz Weight 155 lb 3.2 oz Most Recent Monitor Data Heart Rate from ECG 103 NIBP 124/81 NIBP BP-Mean 95 Respiration from ECG 14 SpO2 97 I&O: 02/25/19 02/26/19 02/27/19 06:59 06:59 06:59 Intake Total 1190 2900 Balance 1190 2900 Result Diagrams: 02/25/19 17:25 02/25/19 17:25 Additional Labs: Accuchecks 02/26/19 02/26/19 02/25/19 11:40 05:55 20:28 POC Glucose 268 H 283 H 246 H 02/25/19 15:39 POC Glucose 158 H Radiology Reviewed by me: Yes (improvement in diffuse opacities, mostly right, compared to yesterday) Hospitalist ROS - Review of Systems Constitutional: reports: chills, sweats ENT: denies: ear pain, ear discharge, nose pain, nose discharge, nose congestion , mouth pain, mouth swelling, throat pain, throat swelling, other Respiratory: denies: cough, dry, shortness of breath, hemoptysis, SOB with excertion, pleuritic pain, sputum, wheezing, other Cardiovascular: reports: chest pain. denies: palpitations, orthopnea, paroxysmal noc. dyspnea, edema, light headedness, other Gastrointestinal: reports: nausea, vomiting. denies: abdominal pain, diarrhea, constipation, melena, hematochezia, other Genitourinary: denies: dysuria, frequency, incontinence, hematuria, retention, other Musculoskeletal: denies: neck pain, shoulder pain, arm pain, back pain, hand pain, leg pain, foot pain, other Neurological: denies: weakness, numbness, incoordination, change in speech, confusion, seizures, other - Medication Medications: Active Medications Generic Name Dose Route Start Last Admin Trade Name Freq PRN Reason Stop Dose Admin Acetaminophen 650 mg 02/23/19 15:54 02/25/19 21:32 Tylenol PO 650 mg Q4H PRN Administration Pain Hydrocodone Bitart/Acetaminophen 2 tab 02/25/19 22:41 02/25/19 23:19 Garland 5/325 PO 2 tab Q4H PRN Administration Moderate to Severe Pain (6-10) Albuterol/Ipratropium 3 ml 02/26/19 07:00 02/26/19 07:04 Duoneb NEB 3 ml [id number] PAYTON Administration Diphenhydramine HCl 25 mg 02/24/19 22:29 02/24/19 22:56 Benadryl PO 25 mg Q6H PRN Administration Itching & Insomnia Insulin Glargine 15 units/ 0.15 mls @ 0 mls/hr 02/25/19 21:00 02/25/19 21:40 Miscellaneous Medication SC 0.15 mls HS PAYTON Administration Sodium Chloride 1,000 mls @ 100 mls/hr 02/25/19 07:30 02/26/19 05:51 Normal Saline 0.9% IV Not Given .Q10H PAYTON Cefepime HCl 2 gm/ Sodium 100 mls @ 200 mls/hr 02/25/19 17:00 02/26/19 08:45 Chloride IVPB 100 mls 0100,0900,1700 PAYTON Administration Vancomycin HCl 1.25 gm/ Sodium 250 mls @ 166.667 mls/hr 02/25/19 21:00 05:46 Chloride IVPB 250 mls 0500,1300,2100 PAYTON Administration Promethazine HCl 12.5 mg/ 50.5 mls @ 202 mls/hr 02/26/19 04:27 02/26/19 04:55 Sodium Chloride IVPB 50.5 mls Q6H PRN Administration Nausea Insulin Human Regular 0 units 02/24/19 08:46 02/26/19 12:15 Humulin R SC 6 unit .MODERATE SLIDING SC PRN Administration Moderate Correctional Scale Insulin Human Regular 5 units 02/25/19 07:30 02/26/19 12:15 Humulin R SC 5 unit AC PAYTON Administration Melatonin 3 mg 02/24/19 22:34 02/24/19 22:56 Melatonin PO 3 mg HS PRN Administration Insomnia Morphine Sulfate 2 mg 02/24/19 08:03 02/26/19 08:49 Morphine SLOW IVP 2 mg Q4H PRN Administration Pain Ondansetron HCl 4 mg 02/23/19 20:59 02/26/19 07:52 Zofran IVP 4 mg Q6H PRN Administration Nausea/Vomiting - Exam General Appearance: NAD, awake alert Eye: PERRL ENT: normocephalic atraumatic, no oropharyngeal lesions, moist mucosa Heart: RRR, no murmur, no gallops, no rubs, normal peripheral pulses Respiratory: no wheezes, no ronchi, normal chest expansion, no tachypnea Respiratory - other findings: diffuse rales, mostly right mid and lower nunn Gastrointestinal: soft, non-tender, non-distended, normal bowel sounds, no palpable masses, no hepatomegaly, no splenomegaly, no bruit Skin: normal turgor, no lesions, no rashes Neurological: cranial nerve grossly intact, normal sensation to touch, no weakness, no focal deficits, no new deficit Psychiatric: normal affect, normal behavior, A&O x 3 Hosp A/P (1) Community acquired pneumonia Code(s): J18.9 - PNEUMONIA, UNSPECIFIED ORGANISM Status: Acute Qualifiers: Laterality: left Plan: didn't respond to ceftriaxone and azithromycin -escalated to vanc and cefepime (currently d2); afebrile since and CXR improving -influenza -ve; respiratory culture contaminated; requested to collect another culture -blood cultures NTD -continue vanc and cefepime -follow up on respiratory cultures (2) Type I diabetes mellitus Status: Chronic Qualifiers: Diabetes mellitus complication status: without complication Qualified Code( s): E10.9 - Type 1 diabetes mellitus without complications Plan: presented with DKA; DKA resolved on 2nd day of hospitalization - (3) Right bundle branch block (RBBB) on electrocardiogram (ECG) Code(s): I45.10 - UNSPECIFIED RIGHT BUNDLE-BRANCH BLOCK Status: Acute Plan: Unchanged; per cardiology, RBBB preexistant and benign -patient requested to schedule outpatient cardiology appointment for further follow up (4) Anxiety, mild Code(s): F41.9 - ANXIETY DISORDER, UNSPECIFIED Status: Acute Plan: well controlled on trazodone and clonazepam PRN - Plan plan discussed w/ family, continue antibiotics, incentive spirometry
[2019-02-26] MEDS: clonazePAM 0.5 MG TAB PO PRN (19:21)
[2019-02-26 20:34] LABS: Vancomycin, Trough 9.6 ug/mL
[2019-02-26] MEDS ORDERED: Insulin Glargine 20 UNITS in Pre-Filled Syringe 1 EACH SC SCH (21:00)
[2019-02-26] MEDS: Vancomycin 1.5 GRAM/300 ML BAG 1.5 GM in Premix Bag 1 BAG IVPB SCH (21:39)
[2019-02-27] MEDS: Cefepime 2 GM in Sodium Chloride 0.9% 100 ML IVPB SCH ×3 (00:31→17:35)
[2019-02-27] MEDS: Morphine 2 MG/ML SYRINGE SLOW IVP PRN ×5 (01:39→20:17)
[2019-02-27] MEDS: Vancomycin 1.5 GRAM/300 ML BAG 1.5 GM in Premix Bag 1 BAG IVPB SCH ×3 (05:01→20:19)
[2019-02-27 05:03] LABS: #Eosinphils 0.6 thou/uL (0.0-0.7); #Lymphocytes 0.6 thou/uL (1.20-3.40); #Neutrophils 9.8 thou/uL (1.40-6.50); %Basophils 0.1 % (0.0-1.0); %Eosinophils 5.3 % (0.0-10.0); %Lymphocytes 5.8 % (21.0-51.0); %Monocytes 0.2 % (0.0-10.0); %Neutrophils 88.6 % (42.0-75.0); Hemoglobin 9.8 g/dL (14.0-18.0); Mean Corpuscular HGB CONC 32.7 g/dL (32.0-36.0); Mean Corpuscular Hemoglobin 28.3 pg (27.0-31.0); Mean Corpuscular Volume 86.5 fL (78.0-98.0); Mean Platelet Volume 6.2 fL (7.4-10.4); Platelet Count 519 thou/uL (130-400); RBC Distribution Width 11.3 % (11.5-14.5); Red Blood Cell (RBC) Count 3.46 mill/uL (4.70-6.10); White Blood Cell (WBC) Count 11.1 thou/uL (4.8-10.8)
[2019-02-27 05:20] LABS: Anion Gap 13 mmol/L (10-20); BUN (Urea Nitrogen) 6 mg/dL (8.9-20.6); Calc. Creatinine Clearance 156 mL/min (70-130); Calcium 7.9 mg/dL (7.8-10.44); Carbon Dioxide 24 mmol/L (22-29); Chloride 100 mmol/L (98-107); Estimated GFR-MDRD Greater than 90; Glucose 203 mg/dL (70-105); Potassium 3.7 mmol/L (3.5-5.1); Sodium 133 mmol/L (136-145)
[2019-02-27] MEDS: Insulin Regular 300 UNITS/3 ML VIAL SC SCH ×3 (06:36→17:35)
[2019-02-27 08:22] LABS: Magnesium 1.7 mg/dL (1.6-2.6); Phosphorus 2.8 mg/dL (2.3-4.7)
[2019-02-27] MEDS: Acetaminophen 325 MG TAB PO PRN ×2 (08:59→20:17)
[2019-02-27] MEDS: Sodium Chloride 0.9% 1,000 ML IV SCH ×2 (11:34→19:37)
[2019-02-27] MEDS: Ondansetron PF 4 MG/2 ML Vial IVP PRN ×2 (12:44→18:17)
[2019-02-27] MEDS ORDERED: Insulin Regular 300 UNITS/3 ML VIAL SC PRN (13:20)
--- NOTE | 2019-02-27 14:35 | RAD ---
2 views of the chest: 02/27/2019 COMPARISON: 02/26/2021 and 02/23/2019 HISTORY: Pneumonia FINDINGS: When compared to the 02/23/2019 examination, there is worsening reticulonodular density in th e perihilar regions and throughout both lungs with a upper lobe predominance. No pneumothorax is seen. No pleural fluid is seen. There has been no significant interval change when compared to the 01/2020 exam. IMPRESSION: Nonspecific reticulonodular infiltrate with interstitial and alveolar opacity in the william hilar regions and bilateral upper lobes. Findings suggest infectious pneumonitis. This could represent an atypical infectious pneumonitis, including pneumocystis in the proper clinical setting. A degree of superimposed edema cannot be excluded.
[2019-02-27] MEDS: tiZANidine HCl 4 MG TAB PO PRN (15:06)
[2019-02-27] MEDS: Insulin Glargine 25 UNITS in Pre-Filled Syringe SC SCH (20:17)
[2019-02-27] MEDS: guaiFENesin ER 600 MG TAB PO SCH (20:17)
[2019-02-27 20:33] LABS: Vancomycin, Trough 11.3 ug/mL
[2019-02-27] MEDS: diphenhydrAMINE 25 MG CAP PO PRN (21:18)
[2019-02-27] MEDS ORDERED: Senokot S 8.6-50 MG TAB PO PRN (22:21)
[2019-02-27] MEDS ORDERED: Famotidine/PF 20 mg/2ml Vial SLOW IVP SCH ×2 (23:00→23:15)
[2019-02-27] MEDS ORDERED: Bacteriostatic Water 30 ML VIAL FS PRN (23:08)
--- NOTE | 2019-02-27 23:11 | PDOC.HOSPP ---
- Subjective Encounter Date: 02/27/19 Encounter Time: 14:00 Subjective: Patient seen and examined for Sepsis. SOB on exertion. No new complaints. No overnight events - Objective Vital Signs & Weight: Vital Signs (12 hours) Temp Pulse Resp BP Pulse Ox 02/27/19 18:58 103 H 20 94 L 02/27/19 14:50 111 H 20 90 L 02/27/19 11:16 99.1 F 97 16 128/84 95 Weight Admit Weight 155 lb 3.2 oz Weight 155 lb 3.2 oz Most Recent Monitor Data Heart Rate from ECG 103 NIBP 124/81 NIBP BP-Mean 95 Respiration from ECG 14 SpO2 97 I&O: 02/26/19 02/27/19 02/28/19 06:59 06:59 06:59 Intake Total 2900 2500 2430 Balance 2900 2500 2430 Result Diagrams: 02/27/19 04:43 02/27/19 04:43 Additional Labs: Accuchecks 02/27/19 02/27/19 02/27/19 15:20 11:22 05:59 POC Glucose 278 H 260 H 210 H Radiology Reviewed by me: Yes (CXR - Pneumonia) Hospitalist ROS - Review of Systems Cardiovascular: denies: chest pain, palpitations, orthopnea, paroxysmal noc. dyspnea, edema, light headedness, other Gastrointestinal: denies: nausea, vomiting, abdominal pain, diarrhea, constipation, melena, hematochezia, other - Medication Medications: Active Medications Generic Name Dose Route Start Last Admin Trade Name Freq PRN Reason Stop Dose Admin Acetaminophen 650 mg 02/23/19 15:54 02/27/19 20:17 Tylenol PO 650 mg Q4H PRN Administration Pain Hydrocodone Bitart/Acetaminophen 2 tab 02/25/19 22:41 02/25/19 23:19 [place] 5/325 PO 2 tab Q4H PRN Administration Moderate to Severe Pain (6-10) Albuterol/Ipratropium 3 ml 02/27/19 15:00 02/27/19 18:58 Duoneb NEB 3 ml [id number] PAYTON Administration Clonazepam 0.25 mg 02/25/19 09:08 02/26/19 19:21 Klonopin PO 0.25 mg DAILY PRN Administration Anxiety/Agitation Guaifenesin 600 mg 02/27/19 21:00 02/27/19 20:17 Mucinex PO 600 mg Q12HR PAYTON Administration Cefepime HCl 2 gm/ Sodium 100 mls @ 200 mls/hr 02/25/19 17:00 02/27/19 17:35 Chloride IVPB 100 mls 0100,0900,1700 PAYTON Administration Promethazine HCl 12.5 mg/ 50.5 mls @ 202 mls/hr 02/26/19 04:27 02/26/19 04:55 Sodium Chloride IVPB 50.5 mls Q6H PRN Administration Nausea Vancomycin HCl 1.5 gm/ Device 300 mls @ 150 mls/hr 02/26/19 21:00 02/27/19 20 :19 IVPB 300 mls 0500,1300,2100 PAYTON Administration Sodium Chloride 1,000 mls @ 30 mls/hr 02/27/19 11:30 02/27/19 19:37 Normal Saline 0.9% IV Not Given .Q24H PAYTON Insulin Glargine 25 units/ 0.25 mls @ 0 mls/hr 02/27/19 21:00 02/27/19 20:17 Miscellaneous Medication SC 0.25 mls HS PAYTON Administration Insulin Human Regular 0 units 02/24/19 08:46 02/26/19 12:15 Humulin R SC 6 unit .MODERATE SLIDING SC PRN Administration Moderate Correctional Scale Insulin Human Regular 7 units 02/26/19 17:00 02/27/19 17:35 Humulin R SC 7 unit AC PAYTON Administration Melatonin 3 mg 02/24/19 22:34 02/24/19 22:56 Melatonin PO 3 mg HS PRN Administration Insomnia Morphine Sulfate 2 mg 02/24/19 08:03 02/27/19 20:17 Morphine SLOW IVP 2 mg Q4H PRN Administration Pain Ondansetron HCl 4 mg 02/23/19 20:59 02/27/19 18:17 Zofran IVP 4 mg Q6H PRN Administration Nausea/Vomiting Tizanidine HCl 2 mg 02/27/19 11:19 02/27/19 15:06 Zanaflex PO 2 mg TIDPRN PRN Administration Muscle Spasm - Exam General Appearance: ill appearing Heart: RRR, no gallops Respiratory: no wheezes, rales, rhonchi Gastrointestinal: soft, non-distended, normal bowel sounds Extremities: no cyanosis Psychiatric: normal affect, A&O x 3 Hosp A/P - Plan DVT proph w/SCDs Acute hypoxic resp failure Severe Sepsis due to CAP ?Atypical org DM type 1 DKA on admission - resolved Anxiety Hyponatremia Chronic Anemia PLAN: Cont current Atbx Check PA-Lat CXR Consult Pulmonary/ID Increase Lantus to 25 units HS Cont sliding scale AM labs
[2019-02-27] MEDS ORDERED: diphenhydrAMINE 50 MG/ML VIAL IVP SCH (23:15)
[2019-02-28] MEDS: tiZANidine HCl 4 MG TAB PO PRN (00:06)
[2019-02-28] MEDS: Morphine 2 MG/ML SYRINGE SLOW IVP PRN ×5 (00:07→19:56)
[2019-02-28] MEDS: Cefepime 2 GM in Sodium Chloride 0.9% 100 ML IVPB SCH ×2 (00:11→08:26)
[2019-02-28] MEDS: Vancomycin 1.5 GRAM/300 ML BAG 1.5 GM in Premix Bag 1 BAG IVPB SCH ×2 (04:34→14:49)
[2019-02-28 05:14] LABS: #Eosinphils 0.6 thou/uL (0.0-0.7); #Lymphocytes 0.6 thou/uL (1.20-3.40); #Monocytes 0.2 thou/uL (0.11-0.59); #Neutrophils 9.2 thou/uL (1.40-6.50); %Basophils 0.1 % (0.0-1.0); %Eosinophils 5.5 % (0.0-10.0); %Lymphocytes 5.6 % (21.0-51.0); %Monocytes 1.5 % (0.0-10.0); %Neutrophils 87.4 % (42.0-75.0); Mean Corpuscular HGB CONC 33.3 g/dL (32.0-36.0); Mean Corpuscular Volume 87.2 fL (78.0-98.0); Mean Platelet Volume 6.3 fL (7.4-10.4); Platelet Count 531 thou/uL (130-400); RBC Distribution Width 11.3 % (11.5-14.5); Red Blood Cell (RBC) Count 3.43 mill/uL (4.70-6.10); White Blood Cell (WBC) Count 10.6 thou/uL (4.8-10.8)
[2019-02-28 05:18] LABS: ALT (SGPT) 19 U/L (8-55); AST (SGOT) 16 U/L (5-34); Albumin 2.6 g/dL (3.5-5.0); Alkaline Phosphatase 99 U/L (40-110); Anion Gap 10 mmol/L (10-20); BUN (Urea Nitrogen) 5 mg/dL (8.9-20.6); Bilirubin, Total 0.4 mg/dL (0.2-1.2); Calc. Creatinine Clearance 173 mL/min (70-130); Calcium 8.1 mg/dL (7.8-10.44); Carbon Dioxide 28 mmol/L (22-29); Chloride 103 mmol/L (98-107); Estimated GFR-MDRD Greater than 90; Glucose 84 mg/dL (70-105); Magnesium 1.9 mg/dL (1.6-2.6); Potassium 3.7 mmol/L (3.5-5.1); Protein, Total 5.6 g/dL (6.0-8.3); Sodium 137 mmol/L (136-145)
[2019-02-28] MEDS: Insulin Regular 300 UNITS/3 ML VIAL SC SCH ×3 (07:15→17:50)
[2019-02-28] MEDS: Saccharomyces boulardii 250 MG CAP PO SCH (08:26)
[2019-02-28] MEDS: diphenhydrAMINE 25 MG CAP PO PRN ×2 (08:26→22:51)
[2019-02-28] MEDS: Polyethylene Glycol 3350 17 GM Packet PO SCH (08:26)
[2019-02-28] MEDS: guaiFENesin ER 600 MG TAB PO SCH ×2 (08:27→20:01)
[2019-02-28] MEDS ORDERED: methylPREDNISolone Sod Succ/PF 125 MG/2 ML VIAL IVP SCH (09:00)
[2019-02-28] MEDS ORDERED: Famotidine/PF 20 mg/2ml Vial SLOW IVP SCH ×2 (09:00)
[2019-02-28] MEDS: Sodium Chloride 0.9% 1,000 ML IV SCH (17:20)
--- NOTE | 2019-02-28 17:25 | CON ---
DATE OF CONSULTATION: 02/28/2019 REASON FOR CONSULTATION: Pneumonia. HISTORY OF PRESENT ILLNESS: A 43-year-old with history of type 1 diabetes with prior admissions for management of DKA associated with gastroenteritis, who was feeling unwell around and then had some vomiting, tried to keep hydrated with Pedialyte and continued taking his insulin and checking his urine for ketones. He never had much of a cough, but continued to have general malaise and never had a fever documented in the outpatient setting. Eventually, he kept having symptoms that did not improve, so he decided to come to the emergency room and ended up admitted on 02/23. At the arrival, evaluation showed a blood sugar in the 400s. He had some cough reported, apparently was tested by an [facility] and was negative for influenza. He was not given any treatment. He was told that it was probably influenza anyway. PAST MEDICAL HISTORY: 1. Type 1 diabetes. 2. DKA episodes. 3. Tooth abscess. 4. Laminectomy in the cervical area. SOCIAL HISTORY: He had been smoking, trying to quit by using nicotine delivery devices. He last used one just a few days ago, one of those vaping devices. ALLERGIES: none CURRENT MEDICATIONS: 1. Dulce. 2. DuoNeb. 3. Klonopin. 4. Benadryl. 5. Pepcid. 6. Mucinex. 7. Insulin. 8. Levaquin. 9. Melatonin. 10. Morphine. 11. Zofran. 12. MiraLAX. 13. Tizanidine. 14. Had been on cefepime before. PHYSICAL EXAMINATION: VITAL SIGNS: T-max 102 on arrival, then it was 103 two days later and has defervesced since; BP 120/70, pulse 105, respirations 16, and O2 saturation 96. SKIN: Normal. He has a few hypopigmented spots in the lower extremities. Peripheral IV access. He has no Enrique catheter. No lymphadenopathy. HEENT: Ocular movements conjugate. Sclerae white. Pupils are equal. Oral cavity normal. NECK: Supple. No jugular vein distention. LUNGS: Bilateral rhonchi with some crackles, which are quite symmetrically distributed and more intense in the mid lung field areas, right and left side. HEART: S1 and S2. Regular rate. No S3 or S4. ABDOMEN: Soft, not distended or tender. No ascites. No bladder distention. EXTREMITIES: No joint inflammatory activity, moves extremities equally. NEUROLOGIC: Cognitive function appears to be intact. LABORATORY DATA: White cell count is down to 10.6, hemoglobin 10, platelets 531 , and 87% neutrophils. Chemistry with a creatinine of 0.53. Transaminases normal. Albumin 2.6. Urinalysis with 7 to 10 wbc's. Initial chest x-ray was not remarkable and then he started having those infiltrates and now the latest one shows nonspecific reticulonodular infiltrate with interstitial and alveolar opacity in the perihilar regions, bilateral upper lobes. Microbiology with negative blood cultures, he had like 6 different samples submitted for some reason. Influenza A and B were negative. ASSESSMENT: 1. Type 1 diabetes mellitus. 2. Diffuse pneumonitis with alveolar and interstitial components, right and left side with subacute development 3. Hx of vaping DISCUSSION: Differential diagnosis includes viral pneumonia versus Haemophilus or Streptococcus pneumoniae or other atypical organism, versus of vaping- associated pneumonitis or other types of noninfectious pneumonitis. The patient has no risk for HIV reportedly, but we will go ahead and check while an HIV serology just in case. Check respiratory virus PCR panel. His last pulse ox was 96 on 3 L nasal cannula. I think he is going to need to check his oxygen without O2 supplementation before going home. I would probably advise walking him make sure he does not desaturate too much. The symmetry of the inflammatory process distribution in the absence of bacteremia would argue against a CAP due to the usual pathogens which more commonly are associated with asymmetric distribution of infiltrates since the mechanism is through aspiration rather than hematogenous spread. There is a chance that the process might exacerbate further and CT chest might be required depending on clinical progress. Otherwise further improvement would allow d/c planning. Job ID: [id number] MTDD
[2019-02-28 17:41] LABS: HIV (1/2) Antibody/Antigen Non-Reactive (NonReactive); HIV 1/2 INDEX 0.17 S/CO (<1.00)
[2019-02-28] MEDS: Famotidine 20 MG TAB PO SCH (20:01)
[2019-02-28] MEDS: Insulin Glargine 25 UNITS in Pre-Filled Syringe SC SCH (20:05)
--- NOTE | 2019-02-28 20:07 | PDOC.HOSPP ---
- Subjective Encounter Date: 02/28/19 Encounter Time: 19:30 Subjective: Patient seen and examined for Resp failure. SOB improving. Mild productive cough. No new complaints. No overnight events - Objective Vital Signs & Weight: Vital Signs (12 hours) Temp Pulse Resp BP Pulse Ox 02/28/19 20:00 91 L 02/28/19 19:59 101 H 16 93 L 02/28/19 16:01 99.5 F 105 H 16 127/79 96 02/28/19 14:58 100 16 94 L 02/28/19 11:49 100 15 96 02/28/19 11:37 99.0 F 104 H 18 119/78 95 02/28/19 08:26 92 L 02/28/19 08:17 92 L 02/28/19 08:14 103 H 20 92 L Weight Admit Weight 155 lb 3.2 oz Weight 155 lb 3.2 oz Most Recent Monitor Data Heart Rate from ECG 103 NIBP 124/81 NIBP BP-Mean 95 Respiration from ECG 14 SpO2 97 I&O: 02/27/19 02/28/19 03/01/19 06:59 06:59 06:59 Intake Total 2500 4530 2215 Output Total 1000 Balance 2500 3530 2215 Result Diagrams: 02/28/19 04:09 02/28/19 04:09 Additional Labs: Accuchecks 02/28/19 02/28/19 02/28/19 16:07 11:39 06:23 POC Glucose 310 H 315 H 78 Radiology Reviewed by me: Yes (CXR - Pneumonia) Hospitalist ROS - Review of Systems Cardiovascular: denies: chest pain, palpitations, orthopnea, paroxysmal noc. dyspnea, edema, light headedness, other Gastrointestinal: denies: nausea, vomiting, abdominal pain, diarrhea, constipation, melena, hematochezia, other - Medication Medications: Active Medications Generic Name Dose Route Start Last Admin Trade Name Freq PRN Reason Stop Dose Admin Acetaminophen 650 mg 02/23/19 15:54 02/27/19 20:17 Tylenol PO 650 mg Q4H PRN Administration Pain Hydrocodone Bitart/Acetaminophen 2 tab 02/25/19 22:41 02/25/19 23:19 [place] 5/325 PO 2 tab Q4H PRN Administration Moderate to Severe Pain (6-10) Albuterol/Ipratropium 3 ml 02/27/19 15:00 02/28/19 19:59 Duoneb NEB 3 ml [id number] PAYTON Administration Clonazepam 0.25 mg 02/25/19 09:08 02/26/19 19:21 Klonopin PO 0.25 mg DAILY PRN Administration Anxiety/Agitation Diphenhydramine HCl 50 mg 02/27/19 21:41 02/28/19 08:26 Benadryl PO 50 mg Q6H PRN Administration Itching & Insomnia Famotidine 20 mg 02/28/19 21:00 02/28/19 20:01 Pepcid PO 20 mg BID PAYTON Administration Guaifenesin 600 mg 02/27/19 21:00 02/28/19 20:01 Mucinex PO 600 mg Q12HR PAYTON Administration Promethazine HCl 12.5 mg/ 50.5 mls @ 202 mls/hr 02/26/19 04:27 02/26/19 04:55 Sodium Chloride IVPB 50.5 mls Q6H PRN Administration Nausea Sodium Chloride 1,000 mls @ 30 mls/hr 02/27/19 11:30 02/28/19 17:20 Normal Saline 0.9% IV Not Given .Q24H PAYTON Insulin Glargine 25 units/ 0.25 mls @ 0 mls/hr 02/27/19 21:00 02/27/19 20:17 Miscellaneous Medication SC 0.25 mls HS PAYTON Administration Insulin Human Regular 0 units 02/24/19 08:46 02/26/19 12:15 Humulin R SC 6 unit .MODERATE SLIDING SC PRN Administration Moderate Correctional Scale Insulin Human Regular 7 units 02/26/19 17:00 02/28/19 17:50 Humulin R SC 7 unit AC PAYTON Administration Melatonin 3 mg 02/24/19 22:34 02/24/19 22:56 Melatonin PO 3 mg HS PRN Administration Insomnia Morphine Sulfate 2 mg 02/24/19 08:03 02/28/19 19:56 Morphine SLOW IVP 2 mg Q4H PRN Administration Pain Ondansetron HCl 4 mg 02/23/19 20:59 02/27/19 18:17 Zofran IVP 4 mg Q6H PRN Administration Nausea/Vomiting Polyethylene Glycol 17 gm 02/28/19 09:00 02/28/19 08:26 Miralax PO 17 gm DAILY PAYTON Administration Saccharomyces Boulardii 250 mg 02/28/19 09:00 02/28/19 08:26 Florastor PO 250 mg DAILY PAYTON Administration Senna/Docusate Sodium 2 tab 02/27/19 22:21 02/28/19 08:26 Senokot S PO 2 tab BID PRN Administration Constipation Tizanidine HCl 2 mg 02/27/19 11:19 02/28/19 00:06 Zanaflex PO 2 mg TIDPRN PRN Administration Muscle Spasm - Exam General Appearance: NAD Heart: RRR, no gallops Respiratory: no wheezes, rales, rhonchi Gastrointestinal: soft, non-tender, normal bowel sounds Extremities: no cyanosis Hosp A/P - Plan DVT proph w/SCDs Acute hypoxic resp failure Severe Sepsis due to CA Pneumonia ?Atypical org (POA) DM type 1 DKA on admission - resolved Anxiety Hyponatremia Chronic Anemia PLAN: On PO Levaquin Pulmonary/ID input appreciated Cont Lantus 25 units HS Add Lantus 15 units HS Cont sliding scale with 7 units TID-WM Wean O2 Cont Nebs
[2019-02-28] MEDS: clonazePAM 0.5 MG TAB PO PRN (22:07)
--- NOTE | 2019-03-01 03:38 | CON ---
DATE OF CONSULTATION: HISTORY OF PRESENT ILLNESS: Mr. Ruano is a very pleasant type 1 diabetic. He developed diabetes when he was in his early 30s and was told initially that he was a type 2 diabetic and then the eventually figured out that he was a type 1 diabetic. He says since before , he has been dealing with nausea, vomiting illness that lasted several days. He kept thinking that he was recovering and then as soon as he feel like he was getting better, he gets worse. He finally started developing fever. He has been seen twice in an urgent care environment and sent away and then finally was seen here and admitted because he was extremely hyperglycemic. He was told he probably had influenza B, but his flu swab was negative. He was told he probably still had influenza B after his swab was negative. He subsequently has been admitted and treated with antibiotics. He says he feels 50% to 75% better, but he is not back to his baseline. I was consulted because of pneumonia, hypoxemia. He was admitted on February 23. PAST MEDICAL HISTORY: Other than his diabetes is remarkable for cervical laminectomy and tooth abscess. SOCIAL HISTORY: Unfortunately, he is a smoker. He is trying to quit. He is not a drinker. ALLERGIES: REPORTS NO DRUG ALLERGIES. FAMILY HISTORY: Negative for lung disease in early age. REVIEW OF SYSTEMS: Otherwise negative. PHYSICAL EXAMINATION: VITAL SIGNS: He is afebrile. Heart rate is 100, respiratory rate is in the teens, oximetry is 97% on 3 L. He is 91% to 93% on room air from what the computer records show. HEAD AND NECK: Unremarkable. LUNGS: Clear. HEART: Regular rhythm. S1, S2 are normal. ABDOMEN: Soft and nontender. EXTREMITIES: Without clubbing, cyanosis, or edema. LABORATORY DATA: White count 10.6, hemoglobin 10.0, platelets 531. Sodium 137, potassium 3.7, chloride 103, bicarb 20, BUN 5, creatinine 0.56. PH when he was admitted on venous gas was 7.43. INR was normal. Urinalysis was remarkable for no significant proteinuria. He did have an elevated beta hydroxybutyrate on admission. His HIV was negative. IMPRESSION: Post influenza pneumonia or postviral pneumonia. In either case, he is better. His chest radiograph shows patchy bilateral infiltrates. I have reviewed all of his films. It is not surprising that his x-ray progressed. Given the fact that he says he feels much better than this is radiographic progression of the pneumonia and not indicative of a failed response. All of his cultures are negative. I doubt he has an alveolar hemorrhage syndrome or autoimmune vasculitis. I also doubt he has a vaping-related pneumonitis since he does not vape marijuana. Vaping of legal nicotine products sold legally has lead to very infrequent cases of possible pneumonitis. Majority of the pneumonitis reports are related to vaping THC. If he can ambulate today adequately and shows that he is strong enough to go home, he can probably go home tomorrow without oxygen. Recheck his room air saturations sitting in a chair in the morning. I will be happy to follow with the other physicians caring for him and I will be happy to follow him as an outpatient. Job ID: [id number]
[2019-03-01] MEDS: Famotidine 20 MG TAB PO SCH (08:31)
[2019-03-01] MEDS: Insulin Regular 300 UNITS/3 ML VIAL SC SCH ×2 (08:31→11:50)
[2019-03-01] MEDS: Saccharomyces boulardii 250 MG CAP PO SCH (08:32)
[2019-03-01] MEDS: guaiFENesin ER 600 MG TAB PO SCH (08:32)
[2019-03-01] MEDS: Polyethylene Glycol 3350 17 GM Packet PO SCH (08:32)
[2019-03-01] MEDS ORDERED: Insulin Glargine 15 UNITS in Pre-Filled Syringe SC SCH (09:00)
--- NOTE | 2019-03-01 10:44 | PQF ---
CLINICAL DOCUMENTATION IMPROVEMENT CLARIFICATION FORM: ICD-10 Updated PLEASE DO AN ADDENDUM TO THE PROGRESS NOTE WITH ANY DOCUMENTATION UPDATES OR ADDITIONS AND CARRY THROUGH TO DC SUMMARY. THANK YOU. DATE: 03/01/19 ATTN: DR. FLORES Please exercise your independent, professional judgment in responding to the clarification form. Clinical indicators are provided on the bottom of this form for your review Diagnosis: "SEPSIS" Present on Admission (POA): [ ] Yes [ ] No [ ] Unable to determine For continuity of documentation, please document condition throughout progress notes and discharge summary. Thank You. CLINICAL INDICATORS - SIGNS / SYMPTOMS / LABS/ RESULTS AND LOCATION IN MR PROGRESS NOTE 02/26: "PATIENT SEEN AND EXAMINED FOR SEPSIS" INTERMITTENT FEVER: 102 / 100.6 / 103 PULSE 102-116 WBC 02/24: 13.1 WBC 02/25: 11.6 - INCREASED TO 13.8 RISKS: COMMUNITY ACQUIRED PNEUMONIA (PROGRESS NOTE 02/26) H/O DIABETES TYPE 1 (PROGRESS NOTE 02/26) DKA ON ADMISSION (PROGRESS NOTE 02/26) TREATMENT: IV AZITHROMYCIN (ER) IV ROCEPHIN (ER) IV FLUIDS (ER-02/28) IV VANCOMYCIN (02/26-02/28) IV CEFEPIME (02/25-02/28) LEVAQUIN (STARTED 03/01) BLOOD AND URINE CULTURES (02/24-02/25) INFECTIOUS DISEASE CONSULT (02/27) (This form is maintained as a part of the permanent medical record) 2014 [employer], [place]. All Rights Reserved DAMARI [email or web address] Office: [phone] [facility]
[2019-03-01 11:27] VITALS: BP 120/73; TEMP 98.2
[2019-03-01] MEDS: Insulin Regular 300 UNITS/3 ML VIAL SC PRN (11:50)
[2019-03-01 12:17] LABS: Ref Lab Test Ordered RVP PCR; Reference Lab Name LABCORP
--- NOTE | 2019-03-01 17:11 | PRG ---
DATE OF SERVICE: 03/01/2019 SUBJECTIVE: Mr. Ruano is doing well. He is ambulating up and down the vidal without difficulty. He is stable on room air. OBJECTIVE: LUNGS: Remarkable for crackles in both lung bases, HEART: Regular rhythm. ABDOMEN: Soft. I do believe he is a candidate for discharge. IMPRESSION AND PLAN: Pneumonia, clinically improved. We will follow him up in 3 to 4 weeks in the office with a chest x-ray. I have given him my phone number. Should his clinical condition worsen, I have encouraged him to call me. Job ID: [id number]
--- NOTE | 2019-03-02 09:00 | DIS ---
DATE OF ADMISSION: 02/23/2019 DATE OF DISCHARGE: 03/01/2019 DISCHARGE DISPOSITION: Home. DISCHARGE INSTRUCTIONS: 1. Follow up with primary care physician in 1 week. The patient does not have a local primary care physician. He was advised to follow up with Dr. Shira Rivera in 1 week. 2. Follow up with Dr. Quezada in 2 to 3 weeks. 3. Repeat chest x-ray after 4 weeks is recommended. 4. The patient was advised to discontinue tobacco whipping. ALLERGIES: NO KNOWN DRUG ALLERGIES. DISCHARGE MEDICATIONS: 1. Levaquin 500 mg daily for 8 more days. 2. Florastor 250 mg daily. 3. All other home medications were left unchanged. SIGNIFICANT LABORATORY DATA: WBC on admission was 13.5, at discharge is 10.6. Sodium 129, at discharge 137. HIV was negative. Ketones on admission were 3.21. There was another miscellaneous test ordered by the admitting physician Dr. Cespedes, which is pending at this time. The patient was seen and examined on the day of discharge. Denies any new complaints. Shortness of breath and coughing have significantly improved. INPATIENT CONSULTANTS: 1. Infectious Disease, Dr. Bradley. 2. Pulmonary Dr. Quezada. BRIEF HOSPITAL COURSE: The patient is a 43-year-old male with diabetes mellitus type 1, presented to the hospital with elevated blood sugar along with flu-like symptoms. Please refer to the history and physical for further details. The patient was admitted to the hospital with a diagnosis of pneumonia along with DKA. His EKG was concerning for acute AK initially in the emergency room. He was evaluated by Dr. Nolen in the emergency room. Dr. Nolen felt that this was not an acute AK. The AK activation was canceled. He was started on broad-spectrum antibiotics. His blood sugars gradually improved after resuming Lantus with sliding scale. His maximum temperature this admission was 103. Over the last 48 hours, his maximum temperature has been 99. His blood cultures remain negative. He has been cleared by consultants for discharge. FINAL DIAGNOSES: 1. Acute hypoxic respiratory failure with severe sepsis secondary to community-acquired pneumonia, questionable atypical organism. This is probably postviral pneumonia. 2. Diabetes mellitus type 1 with diabetic ketoacidosis on admission, resolved. 3. Hyponatremia. 4. Chronic anemia. 5. Metabolic acidosis secondary to diabetic ketoacidosis. 6. Thrombocytosis, suspected reactive. PLAN: Plan of care was discussed with the patient in detail. He stated understanding. Job ID: [id number]
== END 2019-03-01 15:10 | disposition home or self-care (01) | DRG 871 ==
LOC: ERS 10:20 → SUATTDRO 10:20 → OBSVTOIN 14:23 → ERHOLD 14:23 → IMCU/EMU 20:22 → SURG A 02-24 11:01
PROVIDERS: ADMIT Internal Medicine; ATTEND Internal Medicine
DX: A41.89 Other specified sepsis (principal); E10.10 Type 1 diabetes mellitus with ketoacidosis without coma; J12.89 Other viral pneumonia; J96.01 Acute respiratory failure with hypoxia; E87.1 Hypo-osmolality and hyponatremia; R65.20 Severe sepsis without septic shock; D64.9 Anemia, unspecified; D69.6 Thrombocytopenia, unspecified; I45.10 Unspecified right bundle-branch block; F41.9 Anxiety disorder, unspecified; Z87.891 Personal history of nicotine dependence; Z79.899 Other long term (current) drug therapy; Z79.4 Long term (current) use of insulin
CPT/HCPCS: 36415; 36416; 71045; 71046; 80048; 80053; 80202; 81001; 81003; 81015; 82010; 82330; 82803; 83605; 83690; 83735; 83880; 84100; 84484; 85025; 85610; 85730; 87040; 87070; 87086; 87205; 87389; 87804; 93005; 94640; 96361; 96365; 96366; 96367; 96374; 96375; 96376; J0456; J0692; J0696; J1644; J1815; J1885; J2270; J2405; J2550; J3370; J3480; J3490; J7050; J7620; Q0163; S0028

== ENCOUNTER 2019-03-09 03:12 | Inpatient (IN) | payer OTHER ==
[2019-03-09 03:40] LABS: #Basophils 0.1 thou/uL (0.0-0.2); #Eosinphils 0.2 thou/uL (0.0-0.7); #Lymphocytes 1.4 thou/uL (1.20-3.40); #Monocytes 0.5 thou/uL (0.11-0.59); #Neutrophils 7.2 thou/uL (1.40-6.50); %Basophils 0.7 % (0.0-1.0); %Eosinophils 2.6 % (0.0-10.0); %Lymphocytes 14.4 % (21.0-51.0); %Monocytes 5.4 % (0.0-10.0); Hemoglobin 11.2 g/dL (14.0-18.0); Mean Corpuscular HGB CONC 32.2 g/dL (32.0-36.0); Mean Corpuscular Hemoglobin 27.8 pg (27.0-31.0); Mean Corpuscular Volume 86.1 fL (78.0-98.0); Mean Platelet Volume 6.4 fL (7.4-10.4); Platelet Count 401 thou/uL (130-400); RBC Distribution Width 11.9 % (11.5-14.5); Red Blood Cell (RBC) Count 4.02 mill/uL (4.70-6.10); White Blood Cell (WBC) Count 9.4 thou/uL (4.8-10.8)
[2019-03-09 04:02] LABS: ALT (SGPT) 47 U/L (8-55); AST (SGOT) 28 U/L (5-34); Albumin 3.5 g/dL (3.5-5.0); Alkaline Phosphatase 147 U/L (40-110); Anion Gap 12 mmol/L (10-20); BUN (Urea Nitrogen) 15 mg/dL (8.9-20.6); Bilirubin, Total 0.2 mg/dL (0.2-1.2); Calc. Creatinine Clearance 0 mL/min (70-130); Calcium 9.2 mg/dL (7.8-10.44); Carbon Dioxide 29 mmol/L (22-29); Chloride 100 mmol/L (98-107); Estimated GFR-MDRD Greater than 90; Globulin 3.3 g/dL (2.4-3.5); Glucose 265 mg/dL (70-105); Potassium 4.3 mmol/L (3.5-5.1); Protein, Total 6.8 g/dL (6.0-8.3); Sodium 137 mmol/L (136-145)
[2019-03-09] MEDS ORDERED: Ketorolac Tromethamine 60 MG/2 ML VIAL ONE (04:38)
[2019-03-09] MEDS ORDERED: Heparin 25,000 units/D5W 500 ML ONE (05:14)
[2019-03-09] MEDS ORDERED: Heparin 10,000 UNITS/ 10 ML VIAL SLOW IVP SCH ×2 (05:15→19:00)
[2019-03-09] MEDS ORDERED: Heparin 25,000 units/D5W 500 ML IV SCH ×2 (05:15→19:00)
[2019-03-09 05:29] LABS: INR-International Normal Ratio 0.9; PTT 31.1 SEC (22.9-36.1)
--- NOTE | 2019-03-09 08:07 | CT ---
PRELIMINARY REPORT/[facility]/EMERGENCY AFTER HOURS PROCEDURE: Receipt of this report by the clinical staff was confirmed with TESSIE VINES MD by Canelo Lieberman on Mar 09, 2019 04:49:00 RECORDS MANAGEMENT ASSISTANT. Addendum electronically signed by Hermann Lieberman on March 09, 2019 4:49:41 AM RECORDS MANAGEMENT ASSISTANT EXAM: CTA Chest with Intravenous Contrast CLINICAL HISTORY: M43 presents to the ER with c/o right side pain in "my lung" that started yesterday evening that has been getting worse. Pt reports the pain is worse with deep breath and is described as sharp. Pt reports he was recently discharged from the hospital after having pneumonia. H e states he feels fine other than this pain. Denies cough, chest pain, SOB, fever, abd pain, N/V/D or leg swelling. TECHNIQUE: Axial CTA images of the chest with intravenous contrast. MIP reconstructed images were cre ated and reviewed. CONTRAST: With; ISOVUE 370,100mL COMPARISON: None provided. FINDINGS: PULMONARY ARTERIES: Filling defects within the right upper lobe segmental pulmonary arteries and biba silar segmental pulmonary arteries. Possible filling defects within the left upper lobe segmental ulnar arteries. AORTA: No thoracic aortic aneurysm or dissection. LUNGS: Scattered areas of groundglass, septal thickening, and small reticulonodular opacities scatter ed within the bilateral lungs. Small amount of atelectasis versus consolidation at the posterior/peripheral lower lobes bilaterally. Trace amount of mucus versus debris within the trachea . PLEURAL SPACES: No pleural effusion. No pneumothorax. HEART AND MEDIASTINUM: No cardiomegaly. Small pericardial effusion. LYMPH NODES: Scattered mild mediastinal/bilateral hilar lymphadenopathy, with subcarinal node measuri ng approximately 1.0 cm in short axis diameter, seen on image 52 series 2. BONES: No acute fracture. Findings favored to represent a Schmorl's node at the superior endplate of T5. Cervical fusion hardware is incompletely evaluated. CHEST WALL AND UPPER ABDOMEN: Images through the upper abdomen are unremarkable. The chest wall is un remarkable. IMPRESSION: 1. Pulmonary emboli within the bibasilar segmental pulmonary arteries and right upper lobe segmental pulmonary arteries, with possible involvement of the left upper lobe segmental pulmonary arteries. 2. Findings may represent an infectious process scattered throughout the bilateral lungs, more promi nent within the posterior lower lobes bilaterally. Developing pulmonary infarcts at the posterior/periphery of the bilateral lower lobes is a differential consideration. 3. Mild scattered mediastinal and bilateral hilar lymphadenopathy. 4. Small pericardial effusion. ELECTRONICALLY SIGNED BY: Ravin Dalal MD Mar 09, 2019 4:47:27 AM RECORDS MANAGEMENT ASSISTANT FINAL REPORT CT ARTERIOGRAM CHEST WITH IV CONTRAST AND 3D IMAGING: DATE: 03/09/2019. TIME: Performed on emergency basis at 0347 hours. HISTORY: Chest pain. FINDINGS: Agree with the preliminary report by Dr. Dalal from [facility]. Pulmonary emboli involve the right upper and lower lobes and the left lower lobe. Multifocal parenchymal opacity involving each lung may represent components of pneumonitis, chronic i nterstitial lung disease, and dependent atelectasis. Borderline mediastinal lymph node size throughout. Small pericardial effusion. Transcribed Date/Time: 03/09/2019 7:47 AM
--- NOTE | 2019-03-09 08:07 | ULT ---
Venous duplex sonogram bilateral lower extremity HISTORY: Bilateral leg pain and edema. FINDINGS: Each common femoral vein and greater saphenous junction were evaluated along with each femo ral, deep femoral, popliteal, and posterior tibial vein. There is good color and spectral Doppler flow, compression, and augmentation. IMPRESSION: Normal exam.
--- NOTE | 2019-03-09 08:07 | RAD ---
EXAM: CHEST ONE VIEW HISTORY: Right-sided chest pain. COMPARISON: 02/27/2019 FINDINGS: There is patchy parenchymal density seen at the lateral right lung base. There are increased intersti tial densities seen in the midlung zones bilaterally in a perihilar location which have improved compared to prior exam. No pleural effusion is identified. Postsurgical changes lower cervical spine are seen. No other interval change. IMPRESSION: 1. Improving interstitial densities midlung zones bilaterally which may be related to improving pulmo nary edema or infectious process. 2. Interval development of patchy parenchymal density lateral right lung base which may be related to developing pneumonia. Follow-up to complete resolution is recommended.
[2019-03-09] MEDS ORDERED: Bisacodyl 5 MG TAB PO PRN (10:19)
[2019-03-09] MEDS ORDERED: Ondansetron ODT 4 MG TAB PO PRN (10:19)
[2019-03-09] MEDS ORDERED: Acetaminophen 500 MG TAB ONE (10:20)
[2019-03-09] MEDS ORDERED: Acetaminophen 325 MG TAB PO PRN (11:51)
[2019-03-09] MEDS ORDERED: Dextrose 5% in Water 1,000 ML IV PRN ×2 (11:53→19:25)
[2019-03-09] MEDS ORDERED: traMADol HCl 50 MG TAB PO PRN (11:53)
[2019-03-09] MEDS ORDERED: Dextrose 50% Abboject 50 ML SYRINGE SLOW IVP PRN ×2 (11:53→19:25)
[2019-03-09] MEDS ORDERED: traMADol HCl 50 MG TAB ONE (12:13)
[2019-03-09] MEDS ORDERED: Heparin 1,000 UNITS/ML VIAL ONE (13:08)
[2019-03-09] MEDS ORDERED: Iopamidol-370 76% 500 ML 1 ML ONE (14:25)
[2019-03-09 16:35] VITALS: BMI 20.9
[2019-03-09] MEDS ORDERED: Zolpidem Tartrate 5 MG TAB PO PRN (19:26)
--- NOTE | 2019-03-09 19:28 | PDOC.HHP ---
Hospitalist HPI - History of Present Illness chest pain/shortness of breath History of Present Illness: This is 42 year old male with type I diabetes who presented with intense right sided chest pain. The patient was recently discharged from the hospital on 03/06 with gastroenteritis and possible pneumonia. He was thought to have sepsis from pneumonia and was discharged with oral levaquin for 8 days. Patient states he did not receive DVT prophylaxis during that admission. On the last day of hospitalization he reported he had some intense pain in his right lower rib but it got better once he left the hospital. Yesterday he did a bunch of chores in his house in the morning with no difficulty. He developed acute pain in his right lower rib at 7:00 pm that was worst with taking a deep breath. He states it felt like a stabbing pain, and was worst with raising his right arm and worst with any kind of movement. He went to sleep hoping it would go away but it continued to get worst to where he couldn't even get out of bed so he went to the hospital. He denies cough, fevers or chills. Patient states his dad has Buerger's disease, but no other history of blood clots in family. ED Course: Vitals upon presentation to the ER showed a blood pressure of 124/106. CTA shows RUL segmental and PINKY segmental and bibasilar PE with pulmonary infarct. The patient was placed on a heparin drip and admitted to the floor. Venous dopplers were negative for DVT. He was started on heparin drip. THe patient has noticed significant improvement in his pain since being started on heparin drip and feels he can take a deeper breath. Hospitalist ROS - Review of Systems Constitutional: denies: fever, chills Eyes: denies: vision change ENT: denies: ear discharge Respiratory: reports: shortness of breath. denies: cough, dry Cardiovascular: reports: chest pain. denies: palpitations, orthopnea, paroxysmal noc. dyspnea Gastrointestinal: denies: nausea, vomiting, abdominal pain, diarrhea Genitourinary: denies: dysuria, frequency, incontinence Musculoskeletal: denies: neck pain, shoulder pain, arm pain, foot pain Skin: denies: rash, lesions, yahaira Neurological: reports: other (headache and neck pain). denies: weakness, numbness Other: anxiety - Medication Medications: Active Medications Generic Name Dose Route Start Last Admin Trade Name Freq PRN Reason Stop Dose Admin Acetaminophen 650 mg 03/09/19 11:51 03/09/19 16:23 Tylenol PO 650 mg Q6H PRN Administration Moderate Pain (4-6) Hospitalist History - Past Medical History Heme/Onc: reports: no pertinent history Hepatobiliary: reports: no pertinent history Psych: reports: no pertinent history Musculoskeletal: reports: no pertinent history Rheumatologic: reports: no pertinent history Renal/: reports: no pertinent history Endocrine: reports: Diabetes Dermatology: reports: no pertinent history - Past Surgical History Past Surgical History: reports: Other (right knee hardware placement; neck and lumbar spine disc compression) Other Surgical History: Right knee tibia surgery S/p anterior cervical diskectomy and fusion at C6-C7 - Family History Other Family History: Dad has Buerger's disease - Social History Smoking Status: Former smoker (quit smoking e cigarettes 1 week ago. Smoked for 1.5 years.) Alcohol: reports: None Drugs: reports: none - Exam General Appearance: NAD, awake alert Eye: PERRL, anicteric sclera ENT: normocephalic atraumatic, no oropharyngeal lesions Neck: supple, symmetric, no JVD, no thyromegaly Heart: RRR, no murmur, no gallops, no rubs Respiratory: CTAB, no wheezes, no rales, no ronchi Gastrointestinal: soft, non-tender, non-distended, normal bowel sounds Extremities: no cyanosis, no clubbing, no edema Hospitalist Results - Labs Result Diagrams: 03/09/19 03:29 03/09/19 03:29 Lab results: WBC 9.4 thou/uL (4.8-10.8) 03/09/19 03:29 Hgb 11.2 g/dL (14.0-18.0) L 03/09/19 03:29 Hct 34.6 % (42.0-52.0) L 03/09/19 03:29 MCV 86.1 fL (78.0-98.0) 03/09/19 03:29 Plt Count 401 thou/uL (130-400) H 03/09/19 03:29 Neutrophils % 77.0 % (42.0-75.0) H 03/09/19 03:29 Sodium 137 mmol/L (136-145) 03/09/19 03:29 Potassium 4.3 mmol/L (3.5-5.1) 03/09/19 03:29 Chloride 100 mmol/L (98-107) 03/09/19 03:29 Carbon Dioxide 29 mmol/L (22-29) 03/09/19 03:29 BUN 15 mg/dL (8.9-20.6) 03/09/19 03:29 Creatinine 0.75 mg/dL (0.7-1.3) 03/09/19 03:29 Glucose 265 mg/dL (70-105) H 03/09/19 03:29 Calcium 9.2 mg/dL (7.8-10.44) 03/09/19 03:29 Total Bilirubin 0.2 mg/dL (0.2-1.2) 03/09/19 03:29 AST 28 U/L (5-34) 03/09/19 03:29 ALT 47 U/L (8-55) 03/09/19 03:29 Alkaline Phosphatase 147 U/L (40-110) H 03/09/19 03:29 Serum Total Protein 6.8 g/dL (6.0-8.3) 03/09/19 03:29 Albumin 3.5 g/dL (3.5-5.0) 03/09/19 03:29 - EKG Interpretation EKG: complete RBBB Hospitalist H&P A/P - Plan Plan: Venous dopplers: normal Chest X ray: improving interstitial densities. Interval development of RML infiltrate CTA: PE within bibasilar segmental pulmonary arteries and right upper lobe segmental pulmonary arteries with involvement of left upper lobe segmental pulmonary arteries. Developing pulmonary infarcts at posterior/periphery of bilateral lower lobes. Mild scattered mediastinal and bilateral hilar adenopathy. Small pericardial effusion. Acute PE with bilateral pulmonary infarcts - continue heparin drip. Likely can transition to oral med tomorrow Type I diabetes - continue lantus 60 units qhs - fingersticks achs Anemia - Hb 11, will monitor Elevated ALP -noted to be 147. No abd pain, will monitor Code status: full code
[2019-03-09] MEDS ORDERED: Lorazepam 0.5 MG TAB PO PRN (20:46)
[2019-03-09] MEDS ORDERED: Insulin Glargine 60 UNITS in Pre-Filled Syringe 1 EACH SC SCH (21:00)
[2019-03-09] MEDS: Famotidine/PF 20 mg/2ml Vial SLOW IVP SCH (21:21)
[2019-03-09] MEDS: HumaLOG 300 UNITS/3 ML VIAL SC PRN (21:23)
[2019-03-10 04:41] LABS: #Basophils 0.1 thou/uL (0.0-0.2); #Eosinphils 0.2 thou/uL (0.0-0.7); #Lymphocytes 1.6 thou/uL (1.20-3.40); #Monocytes 0.4 thou/uL (0.11-0.59); #Neutrophils 6.3 thou/uL (1.40-6.50); %Basophils 0.7 % (0.0-1.0); %Eosinophils 2.7 % (0.0-10.0); %Monocytes 4.5 % (0.0-10.0); Hemoglobin 11.9 g/dL (14.0-18.0); Mean Corpuscular HGB CONC 32.2 g/dL (32.0-36.0); Mean Corpuscular Hemoglobin 27.6 pg (27.0-31.0); Mean Corpuscular Hemoglobin 27.7 pg (27.0-31.0); Mean Corpuscular Volume 85.9 fL (78.0-98.0); Mean Platelet Volume 6.7 fL (7.4-10.4); Platelet Count 398 thou/uL (130-400); Platelet Count 406 thou/uL (130-400); RBC Distribution Width 12.1 % (11.5-14.5); Red Blood Cell (RBC) Count 4.29 mill/uL (4.70-6.10); Red Blood Cell (RBC) Count 4.33 mill/uL (4.70-6.10); White Blood Cell (WBC) Count 8.6 thou/uL (4.8-10.8); White Blood Cell (WBC) Count 8.7 thou/uL (4.8-10.8)
[2019-03-10 05:06] LABS: ALT (SGPT) 79 U/L (8-55); AST (SGOT) 56 U/L (5-34); Albumin 3.6 g/dL (3.5-5.0); Alkaline Phosphatase 141 U/L (40-110); Anion Gap 16 mmol/L (10-20); BUN (Urea Nitrogen) 9 mg/dL (8.9-20.6); Bilirubin, Total 0.3 mg/dL (0.2-1.2); Calc. Creatinine Clearance 134 mL/min (70-130); Carbon Dioxide 26 mmol/L (22-29); Chloride 102 mmol/L (98-107); Estimated GFR-MDRD Greater than 90; Globulin 3.7 g/dL (2.4-3.5); Glucose 147 mg/dL (70-105); Iron 56 ug/dL (65-175); Iron Binding Capacity, Total 270 mcg/dL (261-462); Iron Binding Capacity, Total 273 mcg/dL (261-462); Potassium 3.5 mmol/L (3.5-5.1); Protein, Total 7.3 g/dL (6.0-8.3); Sodium 140 mmol/L (136-145); Transferrin, Serum 218 mg/dL (174-364)
[2019-03-10 05:07] LABS: Iron 52 ug/dL (65-175)
[2019-03-10 08:57] LABS: INR-International Normal Ratio 0.9; Prothrombin Time 12.6 SEC (12.0-14.7)
[2019-03-10 08:58] LABS: PTT 48.9 SEC (22.9-36.1)
[2019-03-10] MEDS ORDERED: Apixaban 5 MG TAB PO SCH ×2 (10:00→21:00)
[2019-03-10] MEDS: Famotidine/PF 20 mg/2ml Vial SLOW IVP SCH (10:01)
[2019-03-10] MEDS: HumaLOG 300 UNITS/3 ML VIAL SC PRN (10:03)
--- NOTE | 2019-03-10 10:22 | CON ---
DATE OF CONSULTATION: HISTORY OF PRESENT ILLNESS: Mr. Ruano is a gentleman that I met February 28. He was hospitalized February 23 with a diagnosis of pneumonia. When I saw him initially, he said he is feeling 50% to 75% better. He ambulated quite a bit that afternoon and was discharged home the next day. He said he felt great yesterday, did a bunch of work. Right after, he was discharged from the hospital, however, he developed pleuritic chest discomfort again and actually, had his mother drive him to the emergency room. At that point, he walked around outside of the ER. His pain started getting better, so he went back home. Yesterday evening, he developed the same pleuritic chest discomfort and at this time, came all the way to the emergency room. He had a CT pulmonary angiogram showing evidence of thromboembolic disease. He subsequently has been admitted. It is not clear to me why he was started on a heparin drip. He has a normal creatinine. PAST MEDICAL HISTORY: Documented in the last admission. FAMILY HISTORY: Documented in the last admission. SOCIAL HISTORY: Documented in the last admission. PHYSICAL EXAMINATION: VITAL SIGNS: He is afebrile. Heart rate is 94, respiratory rate is 16, oximetry is 96% to 98% on room air, blood pressure 141/84. HEAD AND NECK: Unremarkable. LUNGS: Clear. HEART: Regular rhythm. S1 and S2 are normal. ABDOMEN: Soft and nontender. EXTREMITIES: Without clubbing, cyanosis, or edema. LABORATORY DATA: Electrolytes normal. Creatinine is 0.6. White count 8.7, hemoglobin 12.0, and platelets 406,000. IMPRESSION AND PLAN: Thromboembolic disease, perhaps related to his recent illness. The other possibility is that his pulmonary infiltrates on his last admission were actually medical field representative of pulmonary infarction with thromboembolic disease since he had similar presentation on last admission and in this admission. I have recommended sending lab for thrombosis panel, recognizing that his antithrombin 3 levels likely be decreased because of his heparin. Recommended that he be switched to Eliquis. If he has a good day today, he could be discharged home early in the morning. Job ID: [id number]
[2019-03-10 11:15] LABS: PTT 30.9 SEC (22.9-36.1); Prothrombin Time 12.8 SEC (12.0-14.7)
[2019-03-10 11:16] LABS: D-Dimer Test 0.83 *mcg/mL (0.27-0.43)
[2019-03-10 11:30] VITALS: BP 133/82
[2019-03-10 11:54] LABS: Protein C Activity 154 % (78-152)
[2019-03-10 11:55] VITALS: TEMP 97.8
[2019-03-10 12:38] LABS: Factor VIII Test 194.3 % ACTIVE (56-157)
[2019-03-10 18:06] LABS: Cardiolipin IgG Ab 1.2 GPL-U/mL (<10 Negative); Cardiolipin IgM Ab Less than 0.8 MPL-U/mL (<10 Negative); EliA APS New Method **** NEW METHOD ****
--- NOTE | 2019-03-10 22:19 | DIS ---
DATE OF ADMISSION: 03/09/2019 DATE OF DISCHARGE: 03/10/2019 DISCHARGE DIAGNOSES: Acute pulmonary embolism with bilateral pulmonary infarcts , anemia, elevated alkaline phosphatase, transaminitis, thrombocytosis. SECONDARY DISCHARGE DIAGNOSIS: Type 1 diabetes. CONSULTATIONS: Dr. [place] Quezada with Pulmonary. PROCEDURES: None. BRIEF HISTORY OF PRESENT ILLNESS: This is a 44-year-old male with past medical history of type 1 diabetes, who presented to the hospital with right-sided chest pain. The patient was recently discharged from the hospital a few weeks prior with sepsis from pneumonia and gastroenteritis. The patient stated that after he was discharged, he developed an acute episode of right-sided chest pain that eventually got better. The day prior to presentation, the patient had acute episode of pain in his right lower lip that was worse with taking a deep breath. The patient's pain had gotten progressively worse and therefore, he came to the hospital. A CT scan of his thorax showed a right upper lobe segmental and left upper lobe segmental and bibasilar PE with pulmonary infarct. The patient was started on a heparin drip and admitted to the floor. HOSPITAL COURSE: Acute pulmonary embolism with bilateral pulmonary infarcts: The patient was started on heparin drip. He was seen by Pulmonary and thrombosis panel was ordered which is pending. He had venous dopplers done which were negative for DVT. The patient was transitioned to Eliquis. He should take 10 mg twice daily for 7 days and transition to 5 mg twice daily after that. The patient states that his pleuritic pain has resolved. He is requesting discharge. His pulmonar embolism severity index score showed that he was low risk for complications. He will be discharged and have a repeat chest x-ray in 3-[address] Quezada. Transaminitis: The patient was noted to have elevated LFTs with AST 56, ALT 79, alkaline phosphatase 141. The patient denied any abdominal pain, nausea, or vomiting. He was advised to follow up with his PCP in a week and have his LFTs rechecked as an outpatient and come to the hospital if he develops any signs of abdominal pain. Type 1 diabetes: The patient was resumed on his home medications. Anemia: The patient's hemoglobin was 11.2, which increased to 12. Iron study showed a ferritin of 410, iron of 52, and iron saturation of 19. This can be monitored as an outpatient since this is most likely anemia of chronic disease. DISCHARGE PHYSICAL EXAMINATION: VITAL SIGNS: Temperature 97.8, heart rate 63, respiratory rate 18, O2 saturation 96% on room air, blood pressure 133/82. GENERAL: The patient is alert, awake, oriented x3. CVS: Regular rate and rhythm with no murmurs, rubs, or gallops. LUNGS: Clear to auscultation bilaterally. ABDOMEN: Positive bowel sounds, soft, nontender, nondistended. EXTREMITIES: 2+ pulses bilaterally. There is no edema. PERTINENT IMAGING STUDIES: Chest x-ray on 03/09: Improving interstitial densities in the mid lung zones, which may be related to improving pulmonary edema or infectious process. There is also patchy parenchymal density in the right lung base which may be related to developing pneumonia. CTA thorax 03/09: Pulmonary emboli within the bibasilar segmental pulmonary arteries and right upper lobe segmental pulmonary arteries with possible involvement of the left upper lobe segmental pulmonary arteries. There are developing pulmonary infarcts at the posterior/periphery of the bilateral lower lobes. There is mild scattered mediastinal and bilateral hilar lymphadenopathy. There is a small pericardial effusion. Venogram: Shows no DVT. DISCHARGE INSTRUCTIONS: The patient is to follow up with his PCP in a week and follow up with Dr. Quezada in 3-4 weeks with a repeat x-ray. The patient should also consider having an echocardiogram done as an outpatient to follow up the pericardial effusion. ACTIVITY: As tolerated. DIET: Diabetic diet. DISPOSITION: Home. DISCHARGE MEDICATIONS: 1. Eliquis 10 mg p.o. b.i.d. for one week, then 5 mg p.o. b.i.d. after that. 2. Insulin glargine 60-80 units subcu at bedtime. 3. NovoLog sliding scale. Job ID: [id number] [facility]
--- NOTE | 2019-03-13 00:27 | PQF ---
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 Madsen, [facility] Please exercise your independent, professional judgment in responding to the clarification form. Clinical indicators are provided on the bottom of this form for your review Based on your clinical judgment, can you please specify the status of patient's diagnosis of Pneumonia? Please check appropriate box(s): [ ] Simple Pneumonia (community acquired - nosocomial) [ ] No pneumonia [ X ] History of pneumonia only [ ] Other diagnosis please specify [ ] Unable to determine In addition, please specify: Present on Admission (POA): [ ] Yes [ ] No [ ] Unable to determine For continuity of documentation, please document condition throughout progress notes and discharge summary. Thank You. CLINICAL INDICATORS - SIGNS / SYMPTOMS / LABS Consult pg.1- he was hospitalized February 23 with diagnosis of pneumonia DS 03/10 "density in the right lung base which may be related to developing pneumonia" DS 03/10 "improving interstitial densities" HP 03/09 "discharged from the hospital on 03/06 with gastroenteritis and possible PNA" HP 03/09 "discharged with oral Levaquin for 8 days" HP 03/09 "chest pain and SOB" ED Notes 03/09 "right side pain to lung" RISK FACTORS ED Notes 03/09-DM type 1 HP 03/09-Former Smoker Pulmonary embolism- DS pg.1 TREATMENTS: Collected 03/09-Chest Xray APR 15-IVF APR 15-Levaquin 500mg Oral Pulmonary Consult Dr. Quezada (This form is maintained as a part of the permanent medical record) 2014 [employer]. All Rights Reserved [email or web address]
[2019-03-15 12:57] LABS: HEX PHOS LA Tube 1 39.7 SEC; HEX PHOS LA Tube 2 38.7 SEC
[2019-03-16 07:14] LABS: Activated Protein C Resistance 1.9 ratio (.)
== END 2019-03-10 11:52 | disposition home or self-care (01) | DRG 176 ==
LOC: ERS 03:12 → ERHOLD 05:27 → 2NO 13:39
PROVIDERS: ADMIT Hospitalist; ATTEND Hospitalist
PROC: 3E0234Z Introduction of Serum, Toxoid and Vaccine into Muscle, Percutaneous Approach (ICD-10-PCS; principal; 2019-03-10)
DX: I26.99 Other pulmonary embolism without acute cor pulmonale (principal); E10.9 Type 1 diabetes mellitus without complications; Z23 Encounter for immunization; I45.10 Unspecified right bundle-branch block; D64.9 Anemia, unspecified; R74.0 Nonspecific elevation of levels of transaminase and lactic acid dehydrogenase [LDH]; D47.3 Essential (hemorrhagic) thrombocythemia; Z79.4 Long term (current) use of insulin; Z88.1 Allergy status to other antibiotic agents; Z88.0 Allergy status to penicillin; Z98.1 Arthrodesis status; Z87.891 Personal history of nicotine dependence
CPT/HCPCS: 36415; 36416; 71045; 71275; 80053; 81240; 81241; 82728; 83090; 83540; 83550; 84466; 85025; 85240; 85300; 85303; 85305; 85307; 85379; 85598; 85610; 85730; 86147; 90471; 90732; 93005; 93970; 96361; 96365; 96366; 96375; 96376; G0009; J1644; J1815; J1885; Q9967; S0028

== ENCOUNTER 2021-04-10 13:50 | Outpatient (CLI) | payer BC | END 2021-04-10 13:51 | disposition home or self-care (01) | LOC: TBSIIMAG 13:50 | PROVIDERS: ATTEND Neurological Surgery | DX: M47.26 Other spondylosis with radiculopathy, lumbar region (principal); M51.16 Intervertebral disc disorders with radiculopathy, lumbar region; M48.061 Spinal stenosis, lumbar region without neurogenic claudication | CPT/HCPCS: 72158 ==

== ENCOUNTER 2021-09-18 04:34 | Emergency (ER) | payer BC ==
[2021-09-18] MEDS ORDERED: Morphine 4 MG/ML VIAL ONE (05:42)
[2021-09-18] MEDS ORDERED: Dexamethasone 10 MG/ML VIAL ONE (05:42)
[2021-09-18] MEDS ORDERED: Ketorolac Tromethamine 30 MG/ML VIAL ONE (05:42)
== END 2021-09-18 06:09 | disposition home or self-care (01) ==
LOC: ERS 04:34
DX: M54.12 Radiculopathy, cervical region (principal); E10.9 Type 1 diabetes mellitus without complications; F17.220 Nicotine dependence, chewing tobacco, uncomplicated
CPT/HCPCS: 96372; J1100; J1885; J2270

== ENCOUNTER 2021-09-20 06:34 | Emergency (ER) | payer BC ==
[2021-09-20] MEDS ORDERED: Ketorolac Tromethamine 30 MG/ML VIAL ONE (07:10)
== END 2021-09-20 08:02 | disposition home or self-care (01) ==
LOC: ERS 06:34
DX: M54.12 Radiculopathy, cervical region (principal); E10.9 Type 1 diabetes mellitus without complications; F17.220 Nicotine dependence, chewing tobacco, uncomplicated; Z79.899 Other long term (current) drug therapy
CPT/HCPCS: 96372; 99283; J1885

== ENCOUNTER 2021-09-22 16:17 | Emergency (ER) | payer BC ==
[2021-09-22] MEDS ORDERED: Ketorolac Tromethamine 30 MG/ML VIAL ONE (17:21)
== END 2021-09-22 17:50 | disposition home or self-care (01) ==
LOC: ERS 16:17
DX: M54.12 Radiculopathy, cervical region (principal); E10.9 Type 1 diabetes mellitus without complications; F17.220 Nicotine dependence, chewing tobacco, uncomplicated; Z79.899 Other long term (current) drug therapy
CPT/HCPCS: 96372; 99281; J1885

== ENCOUNTER 2021-10-30 13:09 | Outpatient (CLI) | payer BC | END 2021-10-30 13:10 | disposition home or self-care (01) | LOC: SCSMRI 13:09 | PROVIDERS: ATTEND Neurological Surgery | DX: M47.22 Other spondylosis with radiculopathy, cervical region (principal); M48.02 Spinal stenosis, cervical region; M50.122 Cervical disc disorder at C5-C6 level with radiculopathy | CPT/HCPCS: 72141 ==

== ENCOUNTER 2022-05-28 10:24 | Emergency (ER) | payer BC ==
[2022-05-28 10:54] LABS: Actual Bicarbonate (HCO3v) 21 mEq/L (22-28); Base Excess -2.3 mEq/L (-2.0 to +3.0); Calcium, Ionized (venous) 1.09 mmol/L (1.16-1.32); Chloride (VBG) 101 mmol/L (98-106); Hemoglobin (Hb) 16.2 g/dL (13.1-17.2); Potassium (VBG) 4.79 mmol/L (3.70-5.30); pH (venous) 7.42 (7.32-7.43)
[2022-05-28 11:01] LABS: Bilirubin Negative (Negative); Blood, Urine Negative (Negative); Clarity Clear (Clear); Glucose, Urine (Dipstick) Greater than 1000 mg/dL (Negative); Ketone, Urine Negative (Negative); Leukocyte Negative Leu/uL (Negative); Nitrite Negative (Negative); Protein, Urine (Dipstick) Negative (Neg-Trace); Specific Gravity, Urine 1.019 (1.002-1.036); Urobilinogen Normal mg/dL (Less than 2); pH, Urine 6.5 (5.0-9.0)
[2022-05-28 11:10] LABS: Hemoglobin 15.5 g/dL (14.0-18.0); Mean Corpuscular HGB CONC 34.3 g/dL (32.0-36.0); Mean Corpuscular Hemoglobin 30.7 pg (27.0-31.0); Mean Corpuscular Volume 89.6 fl (78.0-98.0); Mean Platelet Volume 8.8 fL (7.4-10.4); Platelet Count 134 10x3/uL (130-400); RBC Distribution Width 11.4 % (11.5-14.5); Red Blood Cell (RBC) Count 5.05 mill/uL (4.70-6.10); White Blood Cell (WBC) Count 9.8 10x3/uL (4.8-10.8)
[2022-05-28 11:30] LABS: Band 3 % (5-11); Lymphocytes 14 % (21-51); MDiff Complete? YES; Monocytes 2 % (0-10); Neutrophil 81 % (42-75); RBC Morphology Normal
[2022-05-28 11:39] LABS: Magnesium 1.8 mg/dL (1.6-2.6)
[2022-05-28 11:42] LABS: ALT (SGPT) 29 U/L (8-55); AST (SGOT) 27 U/L (5-34); Albumin 4.3 g/dL (3.5-5.0); Alkaline Phosphatase 96 U/L (40-110); Anion Gap 17 mmol/L (10-20); BUN (Urea Nitrogen) 15 mg/dL (8.9-20.6); Bilirubin, Total 0.2 mg/dL (0.2-1.2); Calc. Creatinine Clearance 0 mL/min (70-130); Calcium 9.5 mg/dL (7.8-10.44); Carbon Dioxide 19 mmol/L (22-29); Chloride 101 mmol/L (98-107); Estimated GFR 78; Globulin 2.9 g/dL (2.4-3.5); Phosphorus 3.1 mg/dL (2.3-4.7); Protein, Total 7.2 g/dL (6.0-8.3); Sodium 132 mmol/L (136-145)
[2022-05-28 11:51] LABS: Glucose 432 mg/dL (70-105)
== END 2022-05-28 13:33 | disposition home or self-care (01) ==
LOC: ERS 10:24
DX: E10.65 Type 1 diabetes mellitus with hyperglycemia (principal); I10 Essential (primary) hypertension; F17.220 Nicotine dependence, chewing tobacco, uncomplicated; Z79.4 Long term (current) use of insulin
CPT/HCPCS: 36415; 36416; 80053; 81003; 82010; 82805; 83735; 84100; 85025; 96360; 96361

== ENCOUNTER 2022-09-29 07:06 | Emergency (ER) | payer BC ==
[2022-09-29 07:37] LABS: #Basophils 0.1 thou/uL (0.0-0.2); #Eosinphils 0.4 thou/uL (0.0-0.7); #Monocytes 0.4 thou/uL (0.11-0.59); #Neutrophils 5.6 thou/uL (1.40-6.50); %Basophils 0.6 % (0.0-1.0); %Eosinophils 4.6 % (0.0-10.0); %Monocytes 4.8 % (0.0-10.0); %Neutrophils 70.6 % (42.0-75.0); Hematocrit 47.6 % (42.0-52.0); Hemoglobin 15.5 g/dL (14.0-18.0); Mean Corpuscular HGB CONC 32.6 g/dL (32.0-36.0); Mean Corpuscular Hemoglobin 28.4 pg (27.0-31.0); Mean Corpuscular Volume 87.2 fl (78.0-98.0); Mean Platelet Volume 10.1 fL (7.4-10.4); Platelet Count 200 10x3/uL (130-400); RBC Distribution Width 12.2 % (11.5-14.5); Red Blood Cell (RBC) Count 5.46 mill/uL (4.70-6.10); White Blood Cell (WBC) Count 7.9 10x3/uL (4.8-10.8)
[2022-09-29 07:59] LABS: ALT (SGPT) 28 U/L (8-55); AST (SGOT) 26 U/L (5-34); Albumin 4.6 g/dL (3.5-5.0); Alkaline Phosphatase 85 U/L (40-110); Anion Gap 14 mmol/L (10-20); BUN (Urea Nitrogen) 13 mg/dL (8.9-20.6); Bilirubin, Total 0.3 mg/dL (0.2-1.2); Calc. Creatinine Clearance 0 mL/min (70-130); Calcium 9.4 mg/dL (7.8-10.44); Carbon Dioxide 25 mmol/L (22-29); Chloride 106 mmol/L (98-107); Estimated GFR 85; Globulin 2.6 g/dL (2.4-3.5); Glucose 144 mg/dL (70-105); Potassium 4.1 mmol/L (3.5-5.1); Protein, Total 7.2 g/dL (6.0-8.3); Sodium 141 mmol/L (136-145)
[2022-09-29] MEDS ORDERED: Dextrose 50% Abboject 50 ML SYRINGE ONE (10:54)
== END 2022-09-29 14:33 | disposition home or self-care (01) ==
LOC: ERS 07:06
DX: E10.65 Type 1 diabetes mellitus with hyperglycemia (principal); T38.3X4A Poisoning by insulin and oral hypoglycemic [antidiabetic] drugs, undetermined, initial encounter; F17.220 Nicotine dependence, chewing tobacco, uncomplicated
CPT/HCPCS: 36416; 80053; 85025; 96361; 96374; J7999